=== PATIENT | female | born 1950 | race Caucasian/White ===

== ENCOUNTER 2016-04-23 13:58 | Inpatient (IN) | payer MEDICARE, OTHER ==
[2016-04-21 18:53] LABS: A/G RATIO 1.1 (0.7-1.9); ALBUMIN 3.2 G/DL (3.5-5.0); ALKALINE PHOSPHATASE 68 U/L (45-117); CALCIUM, SERUM 8.6 MG/DL (8.5-10.4); CHLORIDE, SERUM 93 MMOL/L (96-112); CHOL/HDL RATIO(NOT ORDER) 1.9 (0-5); CHOLESTEROL 147 MG/DL (< 200); CREATININE 1.32 MG/DL (0.55-1.02); GFR AFRICAN AMERICAN 49 ML/MIN (>=60); GFR NON AFRICAN AMERICAN 42 ML/MIN (>=60); HDL CHOLESTEROL 77 MG/DL (> 49); NON-HDL CHOLESTEROL 70 MG/DL (< 160); POTASSIUM, SERUM 3.9 MMOL/L (3.5-5.3); SGOT(AST) 15 U/L (5-40); SGPT(ALT) 24 U/L (5-65); SODIUM, SERUM 137 MMOL/L (135-148); TOTAL PROTEIN 6.2 G/DL (6.0-8.5)
[2016-04-21 19:01] LABS: BUN (BLOOD UREA NITROGEN) 29 MG/DL (6-23); CO2 (CARBON DIOXIDE) 37 MMOL/L (24-34); GLUCOSE, SERUM 166 MG/DL (60-99); LDL CHOLESTEROL 18 MG/DL (< 130); TRIGLYCERIDE 262 MG/DL (< 150)
[2016-04-21 19:02] LABS: CPK 35 U/L (0-200); TOTAL BILIRUBIN 0.7 MG/DL (0-1.2)
--- NOTE | ~2016-04-23 | DS ---
Discharge Summary [facility] [address] [place]. [address] NAME: SHANTE CAPELLAN : 50 STATUS : DIS IN PAT#: [id number] AGE: 66 ADM/REG DATE : 04/23/16 MR#: [id number] REPORT SERV DATE: 05/02/16 DICTATED BY: JAZZY ALEXANDER DATE: 05/01/16 REPORT STATUS : Draft TRANSCRIBED BY: MODL DATE: 05/01/16 ADMISSION DATE: 04/23/2016 DISCHARGE DATE: 05/01/2016 HISTORY OF PRESENT ILLNESS: The patient is a 66-year-old female with a history of diabetes type 2, hypertension, peripheral vascular disease, chronic atrial fibrillation, CKD, and COPD, who was admitted to the hospital secondary to septic shock with the hypertension despite fluid resuscitation. For further details, please refer to H and P dictated by Dr. Phoenix on 04/23/2016. HOSPITAL COURSE: The patient was admitted to the intensive care unit for further management. For further details, please refer to interim discharge summary dictated by Dr. Car on 04/27/2016. I assumed care of the patient on 04/28/2016. At the time of my assumption of care, the patient was hemodynamically stable. However, on physical exam, the patient was noted to have a right pleural effusion, which progressively increased in size. However, despite this, the patient remained hemodynamically stable with no breathing difficulty. Repeat chest x-ray on 04/29/2016, noted significantly increased size of a pleural effusion. Interventional Radiology was consulted for diagnostic and therapeutic thoracentesis. The patient had the procedure yesterday. Evaluation of the fluid was consistent with a transudative process. The patient has remained hemodynamically stable and also remained afebrile. Also for her pneumonia, the patient was started on cefepime on the . She has completed a total course of 5 days. Over the course of her hospitalization, her breathing status has significantly improved resulting in the patient stating that she no longer requires any breathing treatment and she has not been requiring supplemental oxygen. For her atrial fibrillation, the patient has remained rate controlled and Eliquis was continued throughout her entire hospitalization. Her diabetes, she was managed in the hospital here with insulin therapy. Her blood sugar has been within acceptable limits. Hypertension, blood pressure also has been controlled. Given completion of workup, given resolution of her symptoms, given her hemodynamic stability, the patient will be discharged home to follow with her primary care physician in seven to ten days. Plan has been discussed with the patient who voices understanding and is agreeable with this plan. DISCHARGE DIAGNOSES: 1. Right pleural effusion. 2. Right lobe pneumonia. 3. Atrial fibrillation, chronic. 4. Diabetes type 2. 5. Hypertension. 6. Obesity. DISCHARGE EXAM: VITAL SIGNS: Blood pressure 100/58 with a pulse of 89, respirations 16, O2 saturation 94% on room air, temperature 98.5 degrees Fahrenheit. GENERAL: The patient is lying in bed, in no acute distress. Appears stated age. HEENT: Normocephalic, atraumatic. Extraocular motors intact. Moist oral mucosa. NECK: Trachea midline and symmetric. No JVD noted. No thyromegaly present. No lymphadenopathy noted. Discharge Summary [address] [address] NAME: SHANTE CAPELLAN : 50 STATUS : DIS IN PAT#: [id number] AGE: 66 ADM/REG DATE : 04/23/16 MR#: [id number] REPORT SERV DATE: 05/02/16 DICTATED BY: JAZZY ALEXANDER DATE: 05/01/16 REPORT STATUS : Draft TRANSCRIBED BY: ISABELA DATE: 05/01/16 CHEST: Nontender to palpation. CARDIOVASCULAR: Irregularly irregular rate and rhythm. ABDOMEN: Soft. Positive bowel sounds. Obese. EXTREMITIES: No cyanosis, no clubbing, no edema. NEURO: Alert and oriented x3. No focal deficits appreciated. DISCHARGE MEDICATIONS: Eliquis 5 mg p.o. twice a day, aspirin 81 mg p.o. daily, vitamin B12 of 1000 mcg IM q.30 days, diltiazem XR 240 mg p.o. daily, folic acid 1 mg p.o. daily, multivitamin tab 1 tab p.o. daily, pantoprazole 40 mg p.o. daily, atorvastatin, albuterol 2 puff inhalation three times a day p.r.n., alprazolam 1 mg p.o. three times a day, furosemide 40 mg p.o. daily, Janumet XR mg tab 1 tab p.o. twice a day, glimepiride 4 mg p.o. twice a day, Mag-Ox 1200 mg p.o. every morning, Mag-Ox 800 mg p.o. at bedtime, Levaquin 750 mg p.o. daily for 5 days, atorvastatin 40 mg p.o. daily. DISPOSITION: The patient will be discharged home. ACTIVITY: As tolerated. DIET: Diabetic diet. Greater than 30 minutes was spent on dictation of note, medication reconciliation, writing of prescription, coordinating discharge, discussion of the patient with nursing staff. BRANDON/ISABELA Jazzy Alexander MD / [id number] CC: MD Martinez Cary M.D.
--- NOTE | ~2016-04-23 | IDS ---
Interim Discharge Summary [facility] [address] [place]. [address] NAME: SHANTE CAPELLAN : 50 STATUS : ADM IN PAT#: [id number] AGE: 66 ADM/REG DATE : 04/23/16 MR#: [id number] REPORT SERV DATE: 04/27/16 DICTATED BY: OLIVER CAR DATE: 04/27/16 REPORT STATUS : Draft TRANSCRIBED BY: MODL DATE: 04/27/16 ADMISSION DATE: 04/23/2016 DISCHARGE DATE: For details of the patient's admission, please see detailed H and P dictated by Dr. Phoenix. Briefly, this is a 66-year-old patient who recently stopped smoking, has a history of COPD, diabetes mellitus, neuropathy, chronic atrial fibrillation, on Cardizem and Eliquis at home, who presents with increasing shortness of breath, hypoxia, and was subsequently admitted for treatment of pneumonia. The patient was noted to have a right perihilar infiltrate. She complained of some pleuritic-type chest pain on the right. She had a CT scan of the abdomen that did not show any abnormality in the abdomen and pelvis, but it was noted that the patient had right lower lobe multifocal and left lower lobe pneumonia. The patient was treated with Rocephin and vancomycin. She tested negative for the flu, the strep pneumo and Legionella urinary antigens. However, one of her blood cultures grew out strep pneumococcus. Sensitivities showed that it was sensitive to Rocephin; however, the patient developed some problems with itching and so the Rocephin was changed to cefepime which she has tolerated and the vancomycin was then discontinued. The patient also was hypotensive and in septic shock and was on Levophed up until yesterday, the . It is now since discontinued. She had a period of atrial fibrillation with RVR and was started on amiodarone drip which she is currently on with plans to change to oral Cardizem in divided doses as opposed to the extended release to see if she can tolerate it and then discontinue the amiodarone. She had a slightly elevated troponin which we feel is more than likely due to stress and an echocardiogram that was done on 04/13/2016 showed an ejection fraction of 51%. She has a known history of type 2 diabetes mellitus and is on a sliding insulin scale. She does complain of mouth soreness and has been started with nystatin swish and swallow and MD Daniel mouthwash with some improvement, but still was complaining of a sore mouth. She had an ALEX secondary to sepsis, but this has resolved. She had a slightly low TSH but has a normal free T4. So, this will be followed. Chest x-ray was noted today on the . There is some atelectasis at the right base with a small right pleural effusion. This needs to be followed and the chest x-ray has been ordered for tomorrow to be sure that she does not develop an effusion or something that eventually will need to be tapped. She is currently on room air and saturating 100%. For DVT prophylaxis, none was provided in the hospital, since the patient was already on Eliquis and this has been continued throughout her hospitalization. She is stable to go to the floor and needs to complete cefepime or antibiotic therapy for at least 10 days given the fact that she had a positive blood culture. Hospitalist service will be notified of the patient's transfer. Interim Discharge Summary [address] [address] NAME: SHANTE CAPELLAN : 50 STATUS : ADM IN [facility]#: [id number] AGE: 66 ADM/REG DATE : 04/23/16 MR#: [id number] REPORT SERV DATE: 04/27/16 DICTATED BY: OLIVER CAR DATE: 04/27/16 REPORT STATUS : Draft TRANSCRIBED BY: ISABELA DATE: 04/27/16 /ISABELA Oliver Car M.D. / [id number] CC: Selma Huff IV, M.D.
--- NOTE | ~2016-04-23 | HP ---
History And Physical [facility] [address] [facility] [place]. [address] NAME: SHANTE GOMEZ : 50 STATUS : ADM IN [facility]#: [id number] AGE: 66 ADM/REG DATE : 04/23/16 MR#: [id number] REPORT SERV DATE: 04/24/16 DICTATED BY: HUYEN PHOENIX IV DATE: 04/23/16 REPORT STATUS : Draft TRANSCRIBED BY: ISABELA DATE: 04/23/16 DATE OF ADMISSION: 04/23/2016 REASON FOR ADMISSION: Septic shock with hypertension despite fluid resuscitation. HISTORY OF PRESENT ILLNESS: History was obtained from the records and from the patient. Ms Gomez is a 66-year-old female with a history of recent tobacco dependency, COPD, diabetes mellitus, neuropathy, peripheral vascular disease, chronic atrial fibrillation, chronic kidney disease, anxiety disorder, valvular heart disease, who presents now with weakness, right flank and upper quadrant pain, and shortness of breath with sepsis. The patient was recently hospitalized for a COPD exacerbation. She was treated with doxycycline and sent home with a steroid taper. She was reportedly only given a Ventolin inhaler to use as needed. She was using this three times a day. She was also initiated on supplemental oxygen 20/09. She has not had pulmonary function studies to her knowledge. She developed two days of mild shortness of breath with generalized malaise and right upper quadrant and flank pain. There is no nausea, vomiting, significant cough, diarrhea, increased urinary urgency, frequency, or dysuria. The patient noted no change in the discomfort with breathing or with bowel movements. She did note some increased shortness of breath and some peripheral edema. She has been compliant with other medications. Because of worsening symptoms, she sought evaluation emergency room where she had an elevated white blood cell count, then became hypotensive and despite fluid resuscitation currently has central line on vasopressor agents. There is no clear exposure to ill individuals. PULMONARY HISTORY: Remarkable for no history of childhood asthma or previous pneumonia. She carries a diagnosis of COPD. She has a 35-pack year smoking history, having quit two weeks ago at the time of her hospitalization. She is reportedly up to date on her immunizations. PAST MEDICAL HISTORY: 1. Recent tobacco dependency. 2. COPD with no pulmonary function studies in the system. 3. Diabetes mellitus with neuropathy. 4. Peripheral vascular disease. 5. Chronic atrial fibrillation. 6. Chronic kidney disease. 7. Anxiety disorder. 8. Valvular heart disease with moderate aortic stenosis and mitral stenosis. PAST SURGICAL HISTORY: 1. She had a right knee arthroscopy, then total knee replacement. 2. Total abdominal hysterectomy, and bilateral salpingo-oophorectomy. 3. Appendectomy. 4. Left leg angioplasty. 5. Cholecystectomy. 6. Ileal bypass later reversed. ALLERGIES: THERE ARE NO KNOWN DRUG ALLERGIES. History And Physical [address] [address] NAME: SHANTE GOMEZ : 50 STATUS : ADM IN PAT#: [id number] AGE: 66 ADM/REG DATE : 04/23/16 MR#: [id number] REPORT SERV DATE: 04/24/16 DICTATED BY: HUYEN PHOENIX IV DATE: 04/23/16 REPORT STATUS : Draft TRANSCRIBED BY: ISABELA DATE: 04/23/16 OUTPATIENT MEDICATIONS: 1. Ventolin as needed. 2. Xanax 1 mg three times a day p.r.n. 3. Eliquis 5 mg twice a day. 4. Aspirin 81 mg daily. 5. B12 daily. 6. Diltiazem 240 mg daily. 7. Folic acid 1 mg daily. 8. Lasix 40 mg daily. 9. Amaryl 4 mg twice a day. 10.[place] p.r.n. 11.Magnesium 1200 mg in the morning and 400 mg at nighttime. 12.Multivitamin daily. 13.Protonix 40 mg daily. 14.Zocor 80 mg daily. 15.Janumet daily. SOCIAL HISTORY: Remarkable for the tobacco use as above. She denies alcohol or illicit drug use. She is , lives with her . She continues to work in third shift. FAMILY HISTORY: Remarkable for mother with coronary artery disease and heart failure; father with gastric carcinoma; siblings with colon cancer and diabetes. REVIEW OF SYSTEMS: Fourteen-systems reviewed and pertinent positives as noted above. PHYSICAL EXAMINATION: GENERAL: This is an obese elderly female, in no current respiratory distress. VITAL SIGNS: Blood pressure is 94/53, heart rate is 96, saturations are 97% on 3 L via nasal cannula, respiratory rate is 20, and temperature was 101 on presentation. HEENT: The patient is normocephalic and atraumatic. Extraocular movements are intact. Pupils are reactive to light. Sclerae and conjunctivae are normal. She has a nasal cannula in place. Upper and lower dentures. There is a Mallampati III to IV airway with narrowing of the posterior pharyngeal space. NECK: Without any palpable lymphadenopathy or thyromegaly. CHEST: The patient has decreased breath sounds symmetrically. A prolonged expiratory phase. There are a few basilar inspiratory crackles and squeaks with some expiratory rhonchi, right more than left. No true wheezes are noted. CARDIOVASCULAR: Jugular venous pulsations are difficult to elicit because of the body habitus. She has a distant irregularly irregular S1 and S2 with a 2/6 systolic murmur at the right upper sternal border. No clear S3 or diastolic murmur is noted. Peripheral pulses are diminished. Carotid upstrokes are 1+ with no bruit. ABDOMEN: Obese and nontender. There is no palpable hepatosplenomegaly or masses. Surgical scars are noted. She has a right upper quadrant discomfort along the ribs, but also radiating around her side to include her paraspinals, but she is unable to elicit whether this reproduces her pain. History And Physical [address] [place]. [address] NAME: SHANTE GOMEZ : 50 STATUS : ADM IN [facility]#: [id number] AGE: 66 ADM/REG DATE : 04/23/16 MR#: [id number] REPORT SERV DATE: 04/24/16 DICTATED BY: HUYEN PHOENIX IV DATE: 04/23/16 REPORT STATUS : Draft TRANSCRIBED BY: ISABELA DATE: 04/23/16 EXTREMITIES: Demonstrate 2+ edema. There is no cyanosis, clubbing, or palpable cords. NEUROLOGIC: Strength is 5/5. Sensation is slightly decreased in a stocking distribution. LABORATORY DATA: Chest x-ray demonstrates a new right perihilar density not noted on her earlier March study. Influenza screen is negative. Urinalysis is unremarkable. Lactate is 1.1. BNP is 340. CBC: Hemoglobin is 9.5, hematocrit 29.6, platelet count is 156,000, and white blood cell count is 23.1. Chemistry: Sodium 133, potassium 4.2, chloride 94, bicarb 29, BUN 31, creatinine 1.46, and glucose of 172. AST and ALT are not elevated. TSH is 0.25. Procalcitonin level is 14.92. EKG demonstrates atrial fibrillation with a rate of 104. No ischemic changes are noted. ASSESSMENT AND PLAN: 1. Respiratory. The patient clinically has COPD, though without apparent exacerbation. Oxygen will be titrated to maintain saturation between 90% and 94% range. The patient has a new right perihilar infiltrative mass likely representing a pneumonia since it was not present previously. Pulmicort and Brovana will be given 1 mg and unit dose twice a day. Spiriva will be given one capsule daily. Albuterol will be given with EzPAP q.4 hours while awake and q.2 hours as needed. I would not provide additional steroids at this time. Chest x-ray will be repeated tomorrow. 2. Infectious disease. We will cover for healthcare associated organisms, though this appears to be most likely a pneumonia. It is odd that she has no significant respiratory symptoms. She will be given cefepime and vancomycin. Cultures have been sent. Urine antigen will be sent for pneumococcus as well as for Legionella. 3. Cardiovascular. Levophed will be given as needed to maintain mean arterial pressure greater than 65. We would avoid over hydration with her valvular heart disease. She will be given LR at 100 mL an hour. Troponin will be obtained now and in the morning. 4. Renal. Magnesium and phosphate levels will be obtained. Creatinine is at baseline, we will follow and replace with electrolyte replacement protocol. 5. Gastrointestinal. Protonix will be given for gastrointestinal prophylaxis with the odd, right upper quadrant and flank pain. The abdominal CT scan will be obtained since there is nothing in the urine to think of a pyelonephritis and she is already status post gallbladder. I see nothing on the chest x-ray with a pleural process as well. 6. Endocrinologic. Cortisol level will be obtained. Insulin sliding scale has been ordered. We will hold oral hypoglycemic medications. 7. Neurologic. We will give thiamine orally, pain management. The patient was offered Habitrol patch; however, she is not interested at this time. History And Physical [address] [place]. [address] NAME: SHANTE GOMEZ : 50 STATUS : ADM IN [facility]#: [id number] AGE: 66 ADM/REG DATE : 04/23/16 MR#: [id number] REPORT SERV DATE: 04/24/16 DICTATED BY: HUYEN PHOENIX IV DATE: 04/23/16 REPORT STATUS : Draft TRANSCRIBED BY: ISABELA DATE: 04/23/16 8. Hematologic. We will continue the Eliquis. The patient will be admitted to the ICU under the petroleum laboratory technician service. TIME SEEN: 1645 hours to 1750 hours for a 55 minutes critical care time. TENZIN/ISABELA Huyen Phoenix IV, M.D. / [id number] CC: Selma Huff IV, M.D.
[~2016-04-23 13:58] MED LIST: ACTIVELLA PO; ACTOS30 PO; ADALAT CC30 MG PO; ADOXA100 MG PO; AMARYL4 PO; ASAB PO; B121000P IM; B150 PO; CARTIA XT240 MG/24 PO; CEFT5 PO; CENTRUM PO; COMBIVENT INH; COMBIVENT RESPIM4 GM INH; COMBIVENT RESPIM4 GM PO; DILACOR X2 PO; DILT-XR240 MG PO; DULERA 100 MCG/13 GM INH; ELIQUIS 5 MG TAB5 MG PO; FOLAMIN PO; FOLIC PO; GLUCOPHAGE1000 MG PO; GLUCPH PO; HALF81 PO; HYDROCHLOROT25 MG PO; JANTOVEN1 MG PO; JANUMET XR 50-1 EAC1 PO; JANUMET1 TA1 PO; L20 PO; L40 PO; LANTUS SC; LORTAB10 PO; MAGNESIUM CITRATE PO; MAGOX4 PO; MOBIC7.5 PO; MONOPRIL40 MG PO; MULTIVITAMI1 PO; NORCO1 TAB PO; P20 PO; PROTONIX PO; VENTOLIN HFA INH; X5 PO; XANAX1 MG PO; ZITH250 PO; ZITHROMAX500 MG PO; ZOCOR40 PO; ZOCOR80 MG PO; [UNRECOGNIZED DRUG - OTHER]; [UNRECOGNIZED DRUG - OTHER] OP; [UNRECOGNIZED DRUG - OTHER] OPH; [UNRECOGNIZED DRUG - REMARK]
[2016-04-23 14:03] LABS: BASOPHILS 0 %; BASOPHILS ABSOLUTE 0.01 10/3/uL (0.0-0.16); EOSINOPHILS 0 %; HEMOGLOBIN 9.5 g/dL (12.0-16.0); IMMATURE GRANULOCYTES 1.2 %; IMMATURE GRANULOCYTES ABSOLUTE 0.28 10/3/uL (0.0-0.11); LYMPHOCYTES 1.5 %; LYMPHOCYTES ABSOLUTE 0.35 10/3/uL (0.67-4.30); MEAN CORPUS HGB CONC 32.1 g/dL (32.0-36.0); MEAN CORPUSCULAR HEMOGLOB 27.8 pg (26.0-34.0); MEAN PLATELET VOLUME 10.1 fL (9.2-13.0); MONOCYTES 1.8 %; MONOCYTES ABSOLUTE 0.41 10/3/uL (0.21-1.20); NEUTROPHILS 95.5 %; PLATELET COUNT 156 10/3/uL (150-400); RBC DISTRIBUTION WIDTH 16.3 % (12.0-16.0); RED CELL COUNT 3.42 10/6/uL (4.0-5.6)
[2016-04-23 14:04] LABS: ER CBC TAT 0 Hrs 07 Mins; HEMATOCRIT 29.6 % (36.0-48.0); MEAN CORPUSCULAR VOLUME 86.5 fL (80-100); WHITE BLOOD CELLS 23.1 10/3/uL (4.5-10.5)
[2016-04-23 14:05] LABS: MANUAL DIFF NO %
[2016-04-23 14:15] LABS: ASCORBIC ACID (UR NOT ORDER) NEG (NEG); BILIRUBIN, URINE NEGATIVE (NEG); ER URINALYSIS TAT 0 Hrs 18 Mins; KETONE, URINE NEGATIVE (NEG); LEUKOCYTE ESTERASE(NOT OR SMALL (NEG); NITRITE (URINE) NEG (NEG); WBC (NOT ORDERED) (RFLEX) 1 (0-5)
[2016-04-23 14:17] LABS: ALKALINE PHOSPHATASE 63 U/L (45-117); BUN (BLOOD UREA NITROGEN) 31 MG/DL (6-23); CALCIUM, SERUM 7.7 MG/DL (8.5-10.4); CHLORIDE, SERUM 94 MMOL/L (96-112); CREATININE 1.46 MG/DL (0.55-1.02); GFR AFRICAN AMERICAN 43 ML/MIN (>=60); GFR NON AFRICAN AMERICAN 37 ML/MIN (>=60); GLUCOSE, SERUM 172 MG/DL (60-99); SGPT(ALT) 15 U/L (5-65); SODIUM, SERUM 133 MMOL/L (135-148); TOTAL BILIRUBIN 0.8 MG/DL (0-1.2); TOTAL PROTEIN 5.9 G/DL (6.0-8.5)
[2016-04-23 14:18] LABS: INFLUENZA A SCREEN NEGATIVE (NEGATIVE); INFLUENZA B SCREEN NEGATIVE (NEGATIVE)
[2016-04-23 14:18] LABS: LACTATE 1.1 MMOL/L (0.3-2.4)
[2016-04-23 14:19] LABS: A/G RATIO 0.6 (0.7-1.9); ALBUMIN 2.1 G/DL (3.5-5.0); CO2 (CARBON DIOXIDE) 29 MMOL/L (24-34); GLOBULIN 3.8 G/DL (2.5-4.1); POTASSIUM, SERUM 4.2 MMOL/L (3.5-5.3); SGOT(AST) 32 U/L (5-40)
[2016-04-23 14:59] LABS: BAND NEUTROPHILS 11 %; ER DIFF TAT 1 Hrs 02 Mins; LYMPHOCYTES 3 %; LYMPHOCYTES ABSOLUTE (CALC) 0.69 10/3/uL (0.67-4.30); MONOCYTES 3 %; MONOCYTES ABSOLUTE (CALC) 0.69 10/3/uL (0.21-1.20); NEUTROPHILS ABSOLUTE (CALC) 21.71 10/3/uL (2.02-8.40); PLATELET ESTIMATE ADQ (ADEQUATE); RBC MORPHOLOGY NORM (NORMAL); SEGMENTED NEUTROPHIL (0) 83 %; TOTAL NUCLEATED CELLS 100
[2016-04-23 16:04] LABS: PROCALCITONIN 14.92 ng/mL (<0.5)
[2016-04-23 16:55] LABS: ULTRASENSITIVE TSH 0.215 MCIU/ML (0.358-3.740)
[2016-04-23 23:24] LABS: PHOSPHORUS, SERUM 3.7 MG/DL (2.5-4.5)
[2016-04-23 23:25] LABS: TROPONIN I 0.25 NG/ML (<0.05)
[2016-04-24 04:10] LABS: HEMATOCRIT 31.3 % (36.0-48.0); HEMOGLOBIN 10.1 g/dL (12.0-16.0); MEAN CORPUS HGB CONC 32.3 g/dL (32.0-36.0); MEAN CORPUSCULAR HEMOGLOB 28.5 pg (26.0-34.0); MEAN CORPUSCULAR VOLUME 88.2 fL (80-100); MEAN PLATELET VOLUME 10.7 fL (9.2-13.0); PLATELET COUNT 204 10/3/uL (150-400); RBC DISTRIBUTION WIDTH 16.3 % (12.0-16.0); RED CELL COUNT 3.55 10/6/uL (4.0-5.6); WHITE BLOOD CELLS 31.3 10/3/uL (4.5-10.5)
[2016-04-24 04:12] LABS: MANUAL DIFF YES %
[2016-04-24 05:21] LABS: BAND NEUTROPHILS 16 %; LYMPHOCYTES 1 %; LYMPHOCYTES ABSOLUTE (CALC) 0.31 10/3/uL (0.67-4.30); MONOCYTES 2 %; MONOCYTES ABSOLUTE (CALC) 0.63 10/3/uL (0.21-1.20); NEUTROPHILS ABSOLUTE (CALC) 30.36 10/3/uL (2.02-8.40); SEGMENTED NEUTROPHIL (0) 81 %; TOTAL NUCLEATED CELLS 100
[2016-04-24 05:22] LABS: PLATELET ESTIMATE ADQ (ADEQUATE); TOXIC GRANULATION 1+
[2016-04-24 05:23] LABS: POLYCHROMASIA 1+ (2-5/OIF) (0-1/OIF)
[2016-04-24 06:20] LABS: ALBUMIN 2.3 G/DL (3.5-5.0); BUN (BLOOD UREA NITROGEN) 31 MG/DL (6-23); CALCIUM, SERUM 8.1 MG/DL (8.5-10.4); CHLORIDE, SERUM 95 MMOL/L (96-112); CREATININE 1.27 MG/DL (0.55-1.02); GFR AFRICAN AMERICAN 51 ML/MIN (>=60); GFR NON AFRICAN AMERICAN 44 ML/MIN (>=60); PHOSPHORUS, SERUM 3.4 MG/DL (2.5-4.5); POTASSIUM, SERUM 3.7 MMOL/L (3.5-5.3); SODIUM, SERUM 132 MMOL/L (135-148)
[2016-04-24 06:21] LABS: CO2 (CARBON DIOXIDE) 23 MMOL/L (24-34); GLUCOSE, SERUM 344 MG/DL (60-99)
[2016-04-24 06:22] LABS: TROPONIN I 0.18 NG/ML (<0.05)
[2016-04-25 05:15] LABS: BASOPHILS 0.1 %; BASOPHILS ABSOLUTE 0.01 10/3/uL (0.0-0.16); EOSINOPHILS 0.8 %; HEMATOCRIT 30.3 % (36.0-48.0); HEMOGLOBIN 9.4 g/dL (12.0-16.0); IMMATURE GRANULOCYTES 0.3 %; IMMATURE GRANULOCYTES ABSOLUTE 0.03 10/3/uL (0.0-0.11); LYMPHOCYTES 6.1 %; LYMPHOCYTES ABSOLUTE 0.73 10/3/uL (0.67-4.30); MEAN CORPUSCULAR HEMOGLOB 27.4 pg (26.0-34.0); MEAN CORPUSCULAR VOLUME 88.3 fL (80-100); MEAN PLATELET VOLUME 10.4 fL (9.2-13.0); MONOCYTES 3.2 %; MONOCYTES ABSOLUTE 0.38 10/3/uL (0.21-1.20); NEUTROPHILS 89.5 %; NEUTROPHILS ABSOLUTE 10.74 10/3/uL (2.02-8.40); PLATELET COUNT 169 10/3/uL (150-400); RBC DISTRIBUTION WIDTH 16.2 % (12.0-16.0); RED CELL COUNT 3.43 10/6/uL (4.0-5.6)
[2016-04-25 05:26] LABS: MANUAL DIFF NO %
[2016-04-25 05:57] LABS: CALCIUM, SERUM 8.6 MG/DL (8.5-10.4); CHLORIDE, SERUM 98 MMOL/L (96-112); CO2 (CARBON DIOXIDE) 27 MMOL/L (24-34); GFR AFRICAN AMERICAN 55 ML/MIN (>=60); GFR NON AFRICAN AMERICAN 47 ML/MIN (>=60); POTASSIUM, SERUM 3.7 MMOL/L (3.5-5.3); SODIUM, SERUM 136 MMOL/L (135-148)
[2016-04-25 05:58] LABS: BUN (BLOOD UREA NITROGEN) 25 MG/DL (6-23); GLUCOSE, SERUM 142 MG/DL (60-99); PHOSPHORUS, SERUM 2.2 MG/DL (2.5-4.5)
[2016-04-26 04:54] LABS: BASOPHILS 0.3 %; BASOPHILS ABSOLUTE 0.02 10/3/uL (0.0-0.16); EOSINOPHILS 1.2 %; EOSINOPHILS ABSOLUTE 0.07 10/3/uL (0.0-0.53); HEMATOCRIT 30.2 % (36.0-48.0); HEMOGLOBIN 9.4 g/dL (12.0-16.0); IMMATURE GRANULOCYTES 0.5 %; IMMATURE GRANULOCYTES ABSOLUTE 0.03 10/3/uL (0.0-0.11); LYMPHOCYTES 16.1 %; LYMPHOCYTES ABSOLUTE 0.92 10/3/uL (0.67-4.30); MEAN CORPUS HGB CONC 31.1 g/dL (32.0-36.0); MEAN CORPUSCULAR HEMOGLOB 27.5 pg (26.0-34.0); MEAN CORPUSCULAR VOLUME 88.3 fL (80-100); MEAN PLATELET VOLUME 10.5 fL (9.2-13.0); MONOCYTES 6.8 %; MONOCYTES ABSOLUTE 0.39 10/3/uL (0.21-1.20); NEUTROPHILS 75.1 %; PLATELET COUNT 161 10/3/uL (150-400); RBC DISTRIBUTION WIDTH 16.4 % (12.0-16.0); RED CELL COUNT 3.42 10/6/uL (4.0-5.6)
[2016-04-26 05:02] LABS: MANUAL DIFF NO %; WHITE BLOOD CELLS 5.7 10/3/uL (4.5-10.5)
[2016-04-26 05:04] LABS: CALCIUM, SERUM 8.9 MG/DL (8.5-10.4); CHLORIDE, SERUM 100 MMOL/L (96-112); CO2 (CARBON DIOXIDE) 26 MMOL/L (24-34); CREATININE 0.96 MG/DL (0.55-1.02); GFR AFRICAN AMERICAN 71 ML/MIN (>=60); GFR NON AFRICAN AMERICAN 62 ML/MIN (>=60); PHOSPHORUS, SERUM 2.1 MG/DL (2.5-4.5); POTASSIUM, SERUM 3.5 MMOL/L (3.5-5.3); SODIUM, SERUM 136 MMOL/L (135-148)
[2016-04-26 05:10] LABS: BUN (BLOOD UREA NITROGEN) 13 MG/DL (6-23); GLUCOSE, SERUM 183 MG/DL (60-99)
[2016-04-26 06:37] LABS: PROCALCITONIN 3.83 ng/mL (<0.5)
[2016-04-27 05:02] LABS: BASOPHILS 0.3 %; BASOPHILS ABSOLUTE 0.02 10/3/uL (0.0-0.16); EOSINOPHILS 1.2 %; EOSINOPHILS ABSOLUTE 0.07 10/3/uL (0.0-0.53); HEMATOCRIT 31.1 % (36.0-48.0); HEMOGLOBIN 9.7 g/dL (12.0-16.0); IMMATURE GRANULOCYTES 0.7 %; IMMATURE GRANULOCYTES ABSOLUTE 0.04 10/3/uL (0.0-0.11); LYMPHOCYTES ABSOLUTE 0.82 10/3/uL (0.67-4.30); MANUAL DIFF NO %; MEAN CORPUS HGB CONC 31.2 g/dL (32.0-36.0); MEAN CORPUSCULAR HEMOGLOB 27.6 pg (26.0-34.0); MEAN CORPUSCULAR VOLUME 88.4 fL (80-100); MEAN PLATELET VOLUME 10.7 fL (9.2-13.0); MONOCYTES 8.2 %; MONOCYTES ABSOLUTE 0.48 10/3/uL (0.21-1.20); NEUTROPHILS 75.6 %; NEUTROPHILS ABSOLUTE 4.42 10/3/uL (2.02-8.40); PLATELET COUNT 146 10/3/uL (150-400); RBC DISTRIBUTION WIDTH 16.6 % (12.0-16.0); RED CELL COUNT 3.52 10/6/uL (4.0-5.6); WHITE BLOOD CELLS 5.9 10/3/uL (4.5-10.5)
[2016-04-27 05:31] LABS: BUN (BLOOD UREA NITROGEN) 11 MG/DL (6-23); CALCIUM, SERUM 8.6 MG/DL (8.5-10.4); CHLORIDE, SERUM 99 MMOL/L (96-112); CO2 (CARBON DIOXIDE) 28 MMOL/L (24-34); CREATININE 0.91 MG/DL (0.55-1.02); GFR AFRICAN AMERICAN 76 ML/MIN (>=60); GFR NON AFRICAN AMERICAN 66 ML/MIN (>=60); GLUCOSE, SERUM 167 MG/DL (60-99); PHOSPHORUS, SERUM 3.3 MG/DL (2.5-4.5); POTASSIUM, SERUM 3.7 MMOL/L (3.5-5.3); SODIUM, SERUM 137 MMOL/L (135-148)
[2016-04-28 06:10] LABS: BASOPHILS 0.2 %; BASOPHILS ABSOLUTE 0.01 10/3/uL (0.0-0.16); EOSINOPHILS 1.7 %; HEMATOCRIT 28.5 % (36.0-48.0); HEMOGLOBIN 8.9 g/dL (12.0-16.0); IMMATURE GRANULOCYTES 0.8 %; IMMATURE GRANULOCYTES ABSOLUTE 0.05 10/3/uL (0.0-0.11); LYMPHOCYTES 16.7 %; LYMPHOCYTES ABSOLUTE 1.01 10/3/uL (0.67-4.30); MEAN CORPUS HGB CONC 31.2 g/dL (32.0-36.0); MEAN CORPUSCULAR HEMOGLOB 27.6 pg (26.0-34.0); MEAN CORPUSCULAR VOLUME 88.2 fL (80-100); MEAN PLATELET VOLUME 10.7 fL (9.2-13.0); MONOCYTES ABSOLUTE 0.42 10/3/uL (0.21-1.20); NEUTROPHILS 73.6 %; NEUTROPHILS ABSOLUTE 4.44 10/3/uL (2.02-8.40); PLATELET COUNT 151 10/3/uL (150-400); RBC DISTRIBUTION WIDTH 16.5 % (12.0-16.0); RED CELL COUNT 3.23 10/6/uL (4.0-5.6)
[2016-04-28 06:11] LABS: BUN (BLOOD UREA NITROGEN) 10 MG/DL (6-23); CALCIUM, SERUM 8.4 MG/DL (8.5-10.4); CHLORIDE, SERUM 102 MMOL/L (96-112); CO2 (CARBON DIOXIDE) 28 MMOL/L (24-34); CREATININE 0.82 MG/DL (0.55-1.02); GFR AFRICAN AMERICAN 86 ML/MIN (>=60); GFR NON AFRICAN AMERICAN 75 ML/MIN (>=60); GLUCOSE, SERUM 157 MG/DL (60-99); POTASSIUM, SERUM 3.8 MMOL/L (3.5-5.3); SODIUM, SERUM 139 MMOL/L (135-148)
[2016-04-28 06:12] LABS: MANUAL DIFF NO %
[2016-04-28 07:45] LABS: PROCALCITONIN 1.04 ng/mL (<0.5)
[2016-04-29 06:35] LABS: A/G RATIO 0.5 (0.7-1.9); ALBUMIN 2.1 G/DL (3.5-5.0); BUN (BLOOD UREA NITROGEN) 11 MG/DL (6-23); CALCIUM, SERUM 8.6 MG/DL (8.5-10.4); CHLORIDE, SERUM 103 MMOL/L (96-112); CO2 (CARBON DIOXIDE) 27 MMOL/L (24-34); GFR AFRICAN AMERICAN 77 ML/MIN (>=60); GFR NON AFRICAN AMERICAN 67 ML/MIN (>=60); GLOBULIN 4.2 G/DL (2.5-4.1); POTASSIUM, SERUM 3.9 MMOL/L (3.5-5.3); SGOT(AST) 13 U/L (5-40); SGPT(ALT) 20 U/L (5-65); SODIUM, SERUM 138 MMOL/L (135-148); TOTAL BILIRUBIN 0.5 MG/DL (0-1.2); TOTAL PROTEIN 6.3 G/DL (6.0-8.5)
[2016-04-29 06:36] LABS: ALKALINE PHOSPHATASE 76 U/L (45-117); GLUCOSE, SERUM 107 MG/DL (60-99)
[2016-04-29 06:55] LABS: BASOPHILS 0.4 %; BASOPHILS ABSOLUTE 0.02 10/3/uL (0.0-0.16); EOSINOPHILS 1.8 %; HEMATOCRIT 30.2 % (36.0-48.0); HEMOGLOBIN 9.4 g/dL (12.0-16.0); IMMATURE GRANULOCYTES 0.9 %; IMMATURE GRANULOCYTES ABSOLUTE 0.05 10/3/uL (0.0-0.11); LYMPHOCYTES 17.9 %; LYMPHOCYTES ABSOLUTE 1.01 10/3/uL (0.67-4.30); MEAN CORPUS HGB CONC 31.1 g/dL (32.0-36.0); MEAN CORPUSCULAR HEMOGLOB 26.7 pg (26.0-34.0); MEAN CORPUSCULAR VOLUME 85.8 fL (80-100); MEAN PLATELET VOLUME 10.6 fL (9.2-13.0); MONOCYTES 7.6 %; MONOCYTES ABSOLUTE 0.43 10/3/uL (0.21-1.20); NEUTROPHILS 71.4 %; NEUTROPHILS ABSOLUTE 4.02 10/3/uL (2.02-8.40); PLATELET COUNT 172 10/3/uL (150-400); RBC DISTRIBUTION WIDTH 16.7 % (12.0-16.0); RED CELL COUNT 3.52 10/6/uL (4.0-5.6); WHITE BLOOD CELLS 5.6 10/3/uL (4.5-10.5)
[2016-04-29 06:56] LABS: MANUAL DIFF NO %
[2016-04-30 06:08] LABS: BASOPHILS 0.3 %; BASOPHILS ABSOLUTE 0.02 10/3/uL (0.0-0.16); EOSINOPHILS 1.3 %; EOSINOPHILS ABSOLUTE 0.08 10/3/uL (0.0-0.53); HEMATOCRIT 28.6 % (36.0-48.0); HEMOGLOBIN 8.8 g/dL (12.0-16.0); IMMATURE GRANULOCYTES 0.7 %; IMMATURE GRANULOCYTES ABSOLUTE 0.04 10/3/uL (0.0-0.11); LYMPHOCYTES 15.1 %; LYMPHOCYTES ABSOLUTE 0.91 10/3/uL (0.67-4.30); MEAN CORPUS HGB CONC 30.8 g/dL (32.0-36.0); MEAN CORPUSCULAR HEMOGLOB 27.4 pg (26.0-34.0); MEAN PLATELET VOLUME 10.6 fL (9.2-13.0); MONOCYTES ABSOLUTE 0.36 10/3/uL (0.21-1.20); NEUTROPHILS 76.6 %; NEUTROPHILS ABSOLUTE 4.63 10/3/uL (2.02-8.40); PLATELET COUNT 182 10/3/uL (150-400); RBC DISTRIBUTION WIDTH 16.8 % (12.0-16.0); RED CELL COUNT 3.21 10/6/uL (4.0-5.6)
[2016-04-30 06:10] LABS: MANUAL DIFF NO %; MEAN CORPUSCULAR VOLUME 89.1 fL (80-100)
[2016-04-30 06:16] LABS: A/G RATIO 0.4 (0.7-1.9); ALBUMIN 1.8 G/DL (3.5-5.0); ALKALINE PHOSPHATASE 71 U/L (45-117); BUN (BLOOD UREA NITROGEN) 10 MG/DL (6-23); CALCIUM, SERUM 8.1 MG/DL (8.5-10.4); CHLORIDE, SERUM 100 MMOL/L (96-112); CO2 (CARBON DIOXIDE) 29 MMOL/L (24-34); CREATININE 0.89 MG/DL (0.55-1.02); GFR AFRICAN AMERICAN 78 ML/MIN (>=60); GFR NON AFRICAN AMERICAN 68 ML/MIN (>=60); GLOBULIN 4.2 G/DL (2.5-4.1); POTASSIUM, SERUM 3.7 MMOL/L (3.5-5.3); SGOT(AST) 13 U/L (5-40); SGPT(ALT) 18 U/L (5-65); SODIUM, SERUM 138 MMOL/L (135-148); TOTAL BILIRUBIN 0.5 MG/DL (0-1.2)
[2016-04-30 06:18] LABS: GLUCOSE, SERUM 158 MG/DL (60-99)
[2016-04-30 12:42] LABS: PARTIAL THROMBO TIME 42.2 SEC (22.5-37.2)
[2016-04-30 12:46] LABS: PROTIME (NOT ORD) 22.9 SEC (12.0-14.5)
[2016-04-30 15:35] LABS: GLUCOSE BODY FL (NOT ORD) 107 MG/DL; LDH BODY FLUID (NOT ORD) 422 U/L; PROTEIN BODY FLUID 2.5 G/DL
[2016-04-30 15:52] LABS: BD FL LYMPH (NOT ORD) 8 %; BD FL SOURCE (NOT ORD) RIGHT PLEURAL; BF BASO (NOT OF) 0 %; BF LARGE MONONUCLEAR 9 %; BODY FLUID EOS (NOT ORD) 0 %; BODY FLUID SEG (NOT ORD) 83 %
[2016-04-30 17:52] LABS: BF TOTAL CELL CT (NOT ORD 1787 /MM3; BODY FLUID RBC (NOT ORD) 11774 /MM3
[2016-05-01 06:10] LABS: BASOPHILS 0.3 %; BASOPHILS ABSOLUTE 0.02 10/3/uL (0.0-0.16); EOSINOPHILS 1.3 %; EOSINOPHILS ABSOLUTE 0.09 10/3/uL (0.0-0.53); HEMATOCRIT 30.9 % (36.0-48.0); HEMOGLOBIN 9.5 g/dL (12.0-16.0); IMMATURE GRANULOCYTES 0.1 %; IMMATURE GRANULOCYTES ABSOLUTE 0.01 10/3/uL (0.0-0.11); LYMPHOCYTES 16.6 %; LYMPHOCYTES ABSOLUTE 1.11 10/3/uL (0.67-4.30); MEAN CORPUS HGB CONC 30.7 g/dL (32.0-36.0); MEAN CORPUSCULAR HEMOGLOB 27.3 pg (26.0-34.0); MEAN CORPUSCULAR VOLUME 88.8 fL (80-100); MEAN PLATELET VOLUME 10.9 fL (9.2-13.0); MONOCYTES 7.9 %; MONOCYTES ABSOLUTE 0.53 10/3/uL (0.21-1.20); NEUTROPHILS 73.8 %; NEUTROPHILS ABSOLUTE 4.91 10/3/uL (2.02-8.40); PLATELET COUNT 209 10/3/uL (150-400); RBC DISTRIBUTION WIDTH 16.8 % (12.0-16.0); RED CELL COUNT 3.48 10/6/uL (4.0-5.6); WHITE BLOOD CELLS 6.7 10/3/uL (4.5-10.5)
[2016-05-01 06:12] LABS: MANUAL DIFF NO %
[2016-05-01 06:20] LABS: A/G RATIO 0.5 (0.7-1.9); ALKALINE PHOSPHATASE 80 U/L (45-117); BUN (BLOOD UREA NITROGEN) 12 MG/DL (6-23); CALCIUM, SERUM 8.4 MG/DL (8.5-10.4); CHLORIDE, SERUM 101 MMOL/L (96-112); CO2 (CARBON DIOXIDE) 30 MMOL/L (24-34); CREATININE 0.98 MG/DL (0.55-1.02); GFR AFRICAN AMERICAN 70 ML/MIN (>=60); GFR NON AFRICAN AMERICAN 60 ML/MIN (>=60); GLOBULIN 4.4 G/DL (2.5-4.1); GLUCOSE, SERUM 128 MG/DL (60-99); POTASSIUM, SERUM 3.5 MMOL/L (3.5-5.3); SGOT(AST) 17 U/L (5-40); SGPT(ALT) 19 U/L (5-65); SODIUM, SERUM 138 MMOL/L (135-148); TOTAL BILIRUBIN 0.4 MG/DL (0-1.2); TOTAL PROTEIN 6.4 G/DL (6.0-8.5)
[2016-05-01] MEDS ORDERED: DSS PO (12:02)
[2016-05-01] MEDS ORDERED: LIPITOR40 PO (12:04)
== END 2016-05-01 13:36 | disposition home or self-care (01) | DRG 853 ==
LOC: ER 13:58 → MIC 17:33 → 2SO 04-27 20:05
PROVIDERS: Family Medicine; Hospitalist; Internal Medicine Critical Care Medicine; Internal Medicine Pulmonary Disease; Physician Assistant
PROC: 0W9940Z Drainage of Right Pleural Cavity with Drainage Device, Percutaneous Endoscopic Approach (ICD-10-PCS; principal; 2016-04-30)
DX: A40.9 Streptococcal sepsis, unspecified (principal); R65.21 Severe sepsis with septic shock; J90 Pleural effusion, not elsewhere classified; N17.9 Acute kidney failure, unspecified; J18.1 Lobar pneumonia, unspecified organism; E11.42 Type 2 diabetes mellitus with diabetic polyneuropathy; Z99.81 Dependence on supplemental oxygen; J98.11 Atelectasis; J44.0 Chronic obstructive pulmonary disease with (acute) lower respiratory infection; I48.2 Chronic atrial fibrillation; N18.9 Chronic kidney disease, unspecified; F17.211 Nicotine dependence, cigarettes, in remission; F41.9 Anxiety disorder, unspecified; I08.0 Rheumatic disorders of both mitral and aortic valves; T36.1X5A Adverse effect of cephalosporins and other beta-lactam antibiotics, initial encounter; Y92.230 Patient room in hospital as the place of occurrence of the external cause; E66.9 Obesity, unspecified; Z79.82 Long term (current) use of aspirin; Z79.01 Long term (current) use of anticoagulants; Z79.4 Long term (current) use of insulin; Z98.890 Other specified postprocedural states; Z82.49 Family history of ischemic heart disease and other diseases of the circulatory system; Z80.0 Family history of malignant neoplasm of digestive organs; Z83.3 Family history of diabetes mellitus
CPT/HCPCS: 32555; 36415; 71010; 71020; 74176; 80048; 80053; 80061; 80069; 81001; 82150; 82533; 82550; 82945; 82962; 83036; 83605; 83615; 83690; 83735; 83880; 83986; 84100; 84145; 84157; 84443; 84484; 85025; 85610; 85730; 87040; 87070; 87077; 87086; 87150; 87186; 87205; 87449; 87641; 87804; 89051; 94640; 96365; 96375; 99291; 99292; A9270-GY; J0282; J0692; J1170; J1200; J1720; J3370

== ENCOUNTER 2016-05-17 15:40 | Inpatient (IN) | payer MEDICARE, OTHER ==
--- NOTE | ~2016-05-17 | HP ---
History And Physical [address] [place]. [address] NAME: SHANTE CAPELLAN : 50 STATUS : ADM IN [facility]#: [id number] AGE: 66 ADM/REG DATE : 05/17/16 MR#: [id number] REPORT SERV DATE: 05/17/16 DICTATED BY: PAIGE GILLILAND DATE: 05/17/16 REPORT STATUS : Draft TRANSCRIBED BY: MODL DATE: 05/17/16 DATE OF ADMISSION: 05/17/2016 CHIEF COMPLAINT: Generalized weakness. HISTORY OF PRESENT ILLNESS: The patient is a 66-year-old female with past medical history of AFib, COPD, hypertension, recent HCAP pneumonia, diabetes type 2, CKD, chronic pain, recent smoker until this year, who presents after having recently discharged from hospital for a pneumonia with pleural effusion requiring thoracentesis, who was slowly trying to improve but has had progressive weakness. Symptoms have been constant, moderate in severity. Does have mild discomfort with deep breathing that is nonradiating. No nausea or vomiting, but does have decreased p.o. intake. No fevers or diarrhea, but has had urinary yeast type infection feeling. The patient also reports that symptoms are worsened with exertion, resolved only by rest. Symptoms though currently present. The patient has not resolved from symptoms of pneumonia fully since discharge. She does report that she has not had activity and also noted continuing physical decline. REVIEW OF SYSTEMS: GENERAL: Decreased p.o. intake, weakness, but no fevers. EYES: No visual changes or pain. ENT: No sore throat or congestion. NEURO: No numbness or confusion. SKIN: Does have lower extremity swelling, but no rashes. RESPIRATORY: Does have shortness of breath or dyspnea on exertion. Occasional cough. CV: No chest pain. Does have mild chest pain with deep exertion, but no palpitations. GI: No nausea, vomiting, diarrhea, abdominal pain. : No dysuria or hematuria. MUSCULOSKELETAL: Does have chronic swelling and chronic myalgias. ENDO: Increased fatigue. No polyuria. HEME: No bleeding or bruising. IMMUNOLOGIC: No rhinorrhea. PSYCH: No confusion but mild anxiety about having possible repeat thoracentesis. PAST MEDICAL HISTORY: Tobacco use, COPD, diabetes, peripheral vascular disease, chronic AFib, CKD, anxiety, valvular heart disease with moderate and mitral stenosis, recent pneumonia with pleural effusion. SURGICAL HISTORY: Right knee arthroscopic and total knee replacement, total abdominal hysterectomy and bilateral salpingo-oophorectomy, appendectomy, left leg angioplasty, cholecystectomy, ileal bypass and later reversed. ALLERGIES: ROCEPHIN. SOCIAL HISTORY: Quit smoking earlier this year. Accompanied with spouse. No alcohol or illicits. History And Physical [address] [address] NAME: SHANTE CAPELLAN : 50 STATUS : ADM IN PAT#: [id number] AGE: 66 ADM/REG DATE : 05/17/16 MR#: [id number] REPORT SERV DATE: 05/17/16 DICTATED BY: PAIGE GILLILAND DATE: 05/17/16 REPORT STATUS : Draft TRANSCRIBED BY: ISABELA DATE: 05/17/16 FAMILY HISTORY: Coronary artery disease, gastric carcinoma, and additional siblings with colon cancer and diabetes. MEDICATIONS: Ventolin, Xanax, Eliquis, aspirin, atorvastatin, vitamin B, diltiazem, folic acid, Lasix, Amaryl, Sparks, Mag-Ox, Mobic, multivitamin, Protonix, Actos, Janumet, Ocupress. PHYSICAL EXAMINATION: VITAL SIGNS: The patient's blood pressure 168/76, temperature 97.9, pulse 93 to 110, respirations 18, O2 saturations 97% on 2 L. GENERAL: Elderly appears older than stated age, slightly frail but no acute distress at rest. HEENT: Eyes, EOMI. No scleral icterus. ENT, nares patent. Tongue midline. Does have moist mucous membranes. RESPIRATORY: Decreased lower lung camargo. Upper rhonchi diffuse lung sounds with mild end- expiratory wheeze. CHEST: Mildly increased AP diameter. CV: Irregularly irregular. Tachycardic. Trace pedal edema. GI: Soft, nontender, nondistended. Bowel sounds positive. : Deferred. MUSCULOSKELETAL: Moves all extremities x4. Bilateral edema. SKIN: Warm, dry. HEME: No bleeding or bruising except that prior IV sites on hands. NEURO: Alert and oriented. Moves all extremities x4. No asterixis. PSYCH: Appropriate mood and affect. Mildly anxious. LABORATORY DATA: CMP: Procalcitonin negative. BUN and creatinine 14 and 0.87. Troponin negative. LFTs within normal limits. CPK within normal limits. Lactate 1.0. Chest: Persistent effusion with right lower lobe pneumonia, some minimal left costophrenic angle atelectasis. Urinalysis: Large leukocyte esterase with 18 wbc's, occasional bacteria. Ammonia 16. CBC: WBC count 14.7 increased from 6.7 on recent discharge, H and H 10.1 and 33, platelets 485. ASSESSMENT AND PLAN: 1. Healthcare-associated pneumonia. 2. Sepsis. 3. Recurrent pleural effusion. 4. Diabetes type 2. 5. Hypertension. 6. Atrial fibrillation. 7. Obesity. 8. Chronic obstructive pulmonary disease. 9. Urinary tract infection with yeast infection. PLAN: 1. For HCAP, cefepime and vancomycin. Right lower lobe still continued with pleural effusion. Did have extended stay include ICU stay at most recent hospitalization. We will ask for a pulmonary evaluation as the patient has had complex pneumonia history History And Physical [address] [address] NAME: SHANTE CAPELLAN AMAURY : 50 STATUS : ADM IN [facility]#: [id number] AGE: 66 ADM/REG DATE : 05/17/16 MR#: [id number] REPORT SERV DATE: 05/17/16 DICTATED BY: PAIGE GILLILAND DATE: 05/17/16 REPORT STATUS : Draft TRANSCRIBED BY: ISABELA DATE: 05/17/16 this year. 2. Sepsis, present on arrival. IV fluids. IV antibiotics. Treat #1. Lactate within normal limits. 3. Recurrent pleural effusion. Treat pneumonia. The patient fairly concerned about having repeat tap as the patient reports the last thoracentesis was quite painful and is currently hesitating repeating tap at this time. 4. Diabetes type 2. Sliding scale insulin. Monitor. Hold p.o. medications. 5. Hypertension. Continue home medications to cover for atrial fibrillation. 6. Atrial fibrillation. Telemetry. Check lytes. Continue diltiazem and Eliquis. 7. Obesity. Weight loss. 8. COPD. Quit smoking this year, likely component of difficulty with treatment for HCAP. 9. UTI and yeast infection. Diflucan with history of multiple antibiotics. On treatment for HCAP. Titrate cultures. All questions answered to the patient's family at bedside. Anticipate greater than two midnight inpatient stay. DDN/MODL Paige Gilliland MD / [id number] CC: MD Martinez Lock II, M.D.
--- NOTE | ~2016-05-17 | IDS ---
Interim Discharge Summary [facility] [address] [place]. [address] NAME: SHANTE CAPELLAN : 50 STATUS : ADM IN [facility]#: [id number] AGE: 66 ADM/REG DATE : 05/17/16 MR#: [id number] REPORT SERV DATE: 05/25/16 DICTATED BY: ROCKY STUART DATE: 05/24/16 REPORT STATUS : Draft TRANSCRIBED BY: MODL DATE: 05/24/16 ADMISSION DATE: 05/17/2016 DISCHARGE DATE: DATE OF INTERIM SUMMARY: 05/24/2016 CURRENT DIAGNOSES: 1. Parapneumonic effusion with trapped lung, status post bronchoscopy, right thoracoscopy with complete decortication, and intercostal nerve block, Dr. Ba Pedroza, 05/22/2016. 2. Diffuse mediastinal adenopathy, uncertain etiology. 3. Sepsis, present on admission. 4. Healthcare-associated pneumonia, present on admission. 5. 04/12/2016 to 04/14/2016, hospitalization for acute hypoxic respiratory failure and acute exacerbation of chronic obstructive pulmonary disease. 6. 04/23/2016 to 05/01/2016, hospitalization for Streptococcal pneumonia, sepsis, right lower lobe pneumonia, and pleural effusion. 7. Chronic atrial fibrillation, on Eliquis. 8. Chronic anemia. 9. B12 deficiency. 10.Acute blood loss anemia, with transfusion this admission. 11.Edema, proteinuria, and hypoalbuminemia with 356 mg protein in 12-hour urine collection. Immunofixation pending. 12.Chronic kidney disease III with a creatinine clearance 46.2. 13.Hyperkalemia. 14.Type 2 diabetes with hemoglobin A1c in March 7.5, on oral agents at home. 15.Mitral stenosis. 16.Peripheral arterial disease with previous left lower extremity percutaneous coronary intervention and surgery, left internal carotid artery occlusion and right internal carotid artery and vertebral stenosis. 17.History of transient ischemic attack. 18.Osteoarthritis. 19.Generalized anxiety disorder. 20.Peripheral neuropathy. 21.Coronary disease by CT imaging. 22.Hypotension, improved with medication adjustments (discontinuation of diltiazem and introduction of carvedilol). 23.Weight loss. OPERATION/PROCEDURES: See above. PRESENT ILLNESS: This is a 66-year-old white female, who was triaged in the emergency room on 05/17/2016 at 1358 hours complaining of weakness. After evaluation in the emergency room, she was thought to have pneumonia. She was referred to the Hospitalist Service for admission. She was seen by Dr. Artie Arnold and admitted as described on admission history and physical examination. Interim Discharge Summary [address] [place]. [address] NAME: SHANTE CAPELLAN : 50 STATUS : ADM IN [facility]#: [id number] AGE: 66 ADM/REG DATE : 05/17/16 MR#: [id number] REPORT SERV DATE: 05/25/16 DICTATED BY: ROCKY STUART DATE: 05/24/16 REPORT STATUS : Draft TRANSCRIBED BY: MODJose Antonio DATE: 05/24/16 Additional history is as noted by Dr. Arnold and as noted in the above-mentioned problem list. PHYSICAL EXAMINATION: Per Dr. Arnold. ADMISSION LABORATORY: Per Dr. Arnold. HOSPITAL COURSE: She was admitted by Dr. Arnold with: 1. Healthcare-associated pneumonia. 2. Sepsis. 3. Recurrent pleural effusions. All in the setting of the above-mentioned comorbidities. She was admitted to [address] [place] [address]. Cultures were obtained. She was started on cefepime and vancomycin. Pulmonary consultation was obtained. Her hospitalist care was assumed by the undersigned. Clinically, she did not have significant cough, sputum production, dyspnea, fever, or chills. Her predominant symptoms were fatigue and weakness. A procalcitonin level, on admission, was less than 0.05. A C-reactive protein on 05/19/2016 was 80.2. Her white blood cell count on admission was 14.7. A urine culture on admission grew gram-positive cocci and diphtheroid like organisms. Two blood cultures were no growth at four days. With her presentation, recent past history and symptoms, a CT scan of her chest was performed. This was read as: 1. Bilateral pleural effusions with loculated fluid in the fissure on the right. 2. Coarse peribronchovascular thickening at the right base, possibly due to active inflammation. 3. Extensive mediastinal adenopathy. Pulmonary was concerned about the possible empyema and trapped lung in addition to her extensive mediastinal adenopathy. CT Surgery was consulted. The patient was seen by Dr. Pedroza. On 05/22/2016, the above-mentioned procedure was performed. Findings at the time of surgery were more of a parapneumonic effusion with a lot of fibrinous and gelatinous material trapped within the chest cavity. There were loculations. The lung had a thick peel. A complete decortication was required. There was good re-expansion of the lung at the end of the case. Subsequent cultures were negative. At this time, her chest tube remains in place. Her Eliquis which was held for surgery has been restarted. Symptomatically, she feels better. DISPOSITION: Will be home when her chest tubes can be safely removed and her overall status Interim Discharge Summary [facility] [address] [place]. [address] NAME: SHANTE CAPELLAN : 50 STATUS : ADM IN [facility]#: [id number] AGE: 66 ADM/REG DATE : 05/17/16 MR#: [id number] REPORT SERV DATE: 05/25/16 DICTATED BY: ROCKY STUART DATE: 05/24/16 REPORT STATUS : Draft TRANSCRIBED BY: MODL DATE: 05/24/16 allows. Other issues during her hospitalization have included some variable hypotension. This has resolved with discontinuation of Cardizem used for atrial fibrillation and the institution of low-dose carvedilol. She has significant edema associated without hypoalbuminemia (albumin 1.9 on the 05/22/2016) and proteinuria as described above. Some of this may be nutrition related as in March, when admitted for COPD exacerbation, her albumin was 3.3. Her hemoglobin was 10.1 on admission. It fell to 7.5 on the 05/19/2016. She was transfused for surgery at the request of Anesthesia and her hemoglobin increased to 10.1, it is 10.2 today. She is on chronic B12 replacement. She has a normal TSH of 1.92, a low iron of 28, and TIBC of 207 and a ferritin of 105. Her LDH is borderline high at 272. She has a good reticulocyte count of 4.8% with absolute reticulocytes of 153.3 and one stool negative for Hemoccult. In addition, a serum protein electrophoresis does not show a monoclonal gammopathy. Her blood sugar control has been reasonable with insulin. Her home medications have been restarted. She will require followup of her mediastinal adenopathy with consideration of bronchoscopy and EBUS pending followup. Hospitalist team to assume care in a.m. DD/MODL Rocky Stuart M.D. / [id number] CC: Selma Garcia M.D.
--- NOTE | ~2016-05-17 | OP ---
Record Of Operation [facility] [address] [place]. [address] NAME: SHANTE CAPELLAN : 50 STATUS : ADM IN [facility]#: [id number] AGE: 66 ADM/REG DATE : 05/17/16 MR#: [id number] REPORT SERV DATE: 05/22/16 DICTATED BY: EDGARD PEDROZA JR. DATE: 05/22/16 REPORT STATUS : Draft TRANSCRIBED BY: ISABELA DATE: 05/22/16 DATE OF PROCEDURE: 05/22/2016 PREOPERATIVE DIAGNOSES: Pneumonia, right parapneumonic effusion versus empyema, status post thoracentesis, chronic atrial fibrillation, jxs-ciqgeep-njyoffchx diabetes mellitus type 2, hypertension, increased body mass index. POSTOPERATIVE DIAGNOSES: Pneumonia, right parapneumonic effusion versus empyema, status post thoracentesis, chronic atrial fibrillation, sqx-kpmmazs-yccqxvszs diabetes mellitus type 2, hypertension, increased body mass index. NAME OF OPERATION: Bronchoscopy, right thoracoscopy with complete decortication, intercostal nerve block. SURGEON: Edgard Pedroza M.D. SUPERVISOR BRAKE REPAIR: Rafiq Parmar. ANESTHESIA: General endotracheal. FINDINGS: The patient was noted to have what appeared to be more of a parapneumonic effusion with a lot of fibrinous and gelatinous material trapped within the chest cavity. There were a lot of loculations. The lung had a thick peel on it. We were able to get the fluid and debris removed and sent for cultures. The lung required a complete decortication. There was good reexpansion of the lung tissue at the end of the case. All the fissures were opened up. DETAILS OF OPERATION: After adequate general anesthesia, the patient was intubated. A bronchoscopy was performed noting no endobronchial lesions or contraindication with resection. Mucous secretions were evacuated. A left-sided double-lumen endotracheal tube was then placed. The patient was then positioned in the left lateral decubitus position where the right chest was prepped and draped in routine sterile fashion. A small incision was made overlying the lower intercostal space. A separate anterior trocar incision was also made. Through these two incision sites, above findings were noted. The gelatinous and fibrinous material were excised. The loculations were broken up. The fluid was evacuated. A complete decortication of all three lobes was performed. Both the minor and major fissure was opened up. We were able to get good reexpansion of all three lobes after extensive amount of time performing the decortication. The chest was then thoroughly irrigated with multiple liters of normal sterile water. An intercostal nerve block was performed. Two straight 32-Frisian chest tubes were placed. The lung was reinflated. The single trocar site was closed with running Vicryl sutures. The skin was closed with running monofilament suture. A Dermabond dressing was applied, and the procedure was terminated at this point. The patient tolerated the procedure well and taken back to the recovery room in stable condition. Record Of Operation [facility] [address] [facility] [place]. [address] NAME: SHANTE CAPELLAN : 50 STATUS : ADM IN [facility]#: [id number] AGE: 66 ADM/REG DATE : 05/17/16 MR#: [id number] REPORT SERV DATE: 05/22/16 DICTATED BY: EDGARD PEDROZA JR. DATE: 05/22/16 REPORT STATUS : Draft TRANSCRIBED BY: ISABELA DATE: 05/22/16 TARIQ/ISABELA Edgard Pedroza Jr., M.D. / [id number] CC: Jelani Stuart M.D.
--- NOTE | ~2016-05-17 | DS ---
Discharge Summary [facility] [address] [place]. [address] NAME: SHANTE CAPELLAN : 50 STATUS : DIS IN PAT#: [id number] AGE: 66 ADM/REG DATE : 05/17/16 MR#: [id number] REPORT SERV DATE: 05/27/16 DICTATED BY: PAIGE GILLILAND DATE: 05/26/16 REPORT STATUS : Draft TRANSCRIBED BY: MODL DATE: 05/26/16 ADMISSION DATE: 05/17/2016 DISCHARGE DATE: 05/26/2016 DISCHARGE DIAGNOSES: 1. Parapneumonic effusion with trapped lung status post bronch, right thoracostomy, complete decortication, intercostal nerve block by Dr. Pedroza on 05/22/2016, diffuse mediastinal adenopathy, to have followup CT in one to three months with Pulmonology for re-evaluation. 2. Sepsis persistent, present on arrival. 3. Health care-associated pneumonia on arrival. 4. Acute hypoxic respiratory failure. 5. Acute chronic obstructive pulmonary disease exacerbation. 6. Strep pneumonia in the right lower lobe with pleural effusion. 7. Chronic atrial fibrillation, on Eliquis. 8. Chronic anemia, on B12. 9. Acute blood loss anemia. 10.Edema, proteinuria, and hypoalbuminemia. 11.Chronic kidney disease, stage 3. 12.Hyperkalemia. 13.Type 2 diabetes with an A1c of 7.5. 14.Mitral stenosis. 15.Peripheral arterial disease. 16.Transient ischemic attack history. 17.Osteoarthritis. 18.Generalized anxiety. 19.Peripheral neuropathy. 20.Hypotension. DISCHARGE MEDICATIONS: 1. Eliquis 5 mg one tablet p.o. b.i.d. 2. Atorvastatin 40 mg one tablet p.o. daily. 3. Janumet one tablet p.o. b.i.d. 4. Coreg 6.25 mg one tablet p.o. b.i.d. 5. Vitamin B12 1000 mcg IM q.30 days. 6. Folic acid daily. 7. Mag oxide 1200 mg p.o. daily and 800 mg one tablet p.o. at bedtime. 8. Multivitamin. 9. Protonix 40 mg one tablet p.o. daily. 10.Qisc-vcz-rnlplee MiraLAX. 11.Spiriva 18 mcg p.o. inhalation. 12.Metformin 1000 mg one tab p.o. before breakfast. 13.Albuterol two puffs inhalation t.i.d. 14.Xanax 1 mg p.o. t.i.d. 15.Mcdowell 10/325 mg one tablet p.o. t.i.d. 16.Aspirin 81 mg one tablet p.o. daily. Discharge Summary [facility] [address] [place]. [address] NAME: SHANTE CAPELLAN : 50 STATUS : DIS IN PAT#: [id number] AGE: 66 ADM/REG DATE : 05/17/16 MR#: [id number] REPORT SERV DATE: 05/27/16 DICTATED BY: PAIGE GILLILAND DATE: 05/26/16 REPORT STATUS : Draft TRANSCRIBED BY: ISABELA DATE: 05/26/16 17.Ocupress one drop b.i.d. 18.Breo Ellipta. 19.Mcdowell 5/325 mg one tablet p.o. q.4 hours p.r.n. breakthrough pain. HOSPITAL COURSE: Please see H and P by this ghost writer on 05/17/2016 for complete details of HPI and interim summary by Dr. Jelani Stuart on 05/25/2016. Briefly, this is a 66-year-old female who presents after initially having pneumonia type symptoms, HCAP with sepsis in the setting of recurrent pleural effusions. She was started on empiric cefepime and vancomycin given HCAP setting. Pulmonary consultation was obtained due to repeated pleural effusions, although reactive components of procalcitonin is less than 0.05. The patient did have leukocytosis over 14.7. The patient did have CT of bilateral pleural effusions, extensive mediastinal adenopathy, which will still need continued follow with either PCP or Pulmonology preferably after improvement of acute phase from hospital discharge. Concern initially was for empyema and CT Surgery was consulted. Dr. Pedroza evaluated for trapped lung and loculations, complete decortication was required with subsequent reexpansion of the lung. Cultures have been negative. The patient was able to have chest tube discharge and was feeling much improved and was okay for discharge by Pulmonary and CT Surgery. We will need to follow up for mediastinal adenopathy with deferring of bronchoscopy EBUS to Pulmonary upon followup. The patient at the time of discharge felt comfortable back to her baseline and stronger, and was extremely eager to be discharged home. All questions were answered of the patient and family at bedside. The patient to have followup with PCP in one week of hospital D/C with Dr. Freedman; Pulmonary in two to four weeks with Dr. Pedroza on 06/21/2016. Thank you, Dr. Freedman, for allowing us to assist in the care of this patient. D/C planning, med reconciliation, education, coordination of care took greater than 30 minutes. DDN/MODL Paige Gilliland MD / [id number] CC: MD Martinez Fontanez M.D.
--- NOTE | ~2016-05-17 | CN ---
Consultation Report [facility] [address] [place]. [address] NAME: NEVAEH GOMEZ : 50 STATUS : ADM IN PAT#: [id number] AGE: 66 ADM/REG DATE : 05/17/16 MR#: [id number] REPORT SERV DATE: 05/18/16 DICTATED BY: MAURICIO DOW DATE: 05/18/16 REPORT STATUS : Draft TRANSCRIBED BY: MODL DATE: 05/18/16 CONSULTATION DATE OF CONSULTATION: 05/18/2016 REQUESTING PHYSICIAN: Dr. Arnold. CHIEF COMPLAINT: Worsening shortness of breath in a patient, who was recently treated for bilateral pneumonia. HISTORY OF PRESENT ILLNESS: Mrs. Nevaeh Gomez is a very pleasant 66-year-old white female with a past medical history significant for COPD with oxygen dependence, atrial fibrillation, on chronic anticoagulation, valvular heart disease, and recent pneumonia, who presents to [facility]'s Emergency Room with complaints of weakness, loss of appetite, and worsening shortness of breath of four to five days duration. It should be noted that, Mrs. Gomez was hospitalized as recently as two weeks ago, when she was treated for bilateral pneumonia and hypotension. The patient has had a difficult course in the short interval. Mrs. Gomez has not established with a extractions technician. She is on supplemental oxygen at 2- 3 L continuously. She is on a pulmonary regimen of albuterol. The patient quit smoking approximately a month ago, prior to this time, she smoked approximately one to two packs per day for a period of forty years. She largely denies symptomatology related to obstructive sleep apnea. She describes her exercise tolerance prior to these recent illnesses being excellent, being able to walk a city block before experiencing any shortness of breath. Again, the patient was hospitalized approximately two weeks ago, where she was seen on the Critical Care Service for bilateral pneumonia and concomitant hypotension. She did require pressors at some point. She was being able to be weaned off these eventually. She was treated with cefepime and vancomycin. She did unfortunately develop a right pleural effusion, which was eventually drained, 700 mL of fluid was aspirated from the pleural space. Protein was 2.5. LDH was 422. There are no cultures or path reports available on this fluid. The patient was soon after discharged. She did fairly well for three to four days. She did eventually develop some degree of weakness as well as decreased appetite. She presented to her primary care physician as recently as last , where some blood work was obtained. By her report, she did have some leukocytosis, although antibiotics were not started. She was scheduled to follow up with him this week; however, she began to develop shortness of breath as well as some mild wheezing. She did have an episode of rigors, which prompted her presentation to [facility]'s Emergency Room. Upon arrival, she was found to be hypertensive with a systolic blood pressure of 168. She was normotensive. Her oxygenation was 97% on two liters. [place] [address]. Her creatinine was 0.87. She did eventually undergo a chest x-ray, which demonstrated pleural effusion in the right lower lobe. Since this time, she has had some hypotension. For the aforementioned reasons, she has been referred to the Consultation Report [address] [place]. [address] NAME: NEVAEH GOMEZ : 50 STATUS : ADM IN [facility]#: [id number] AGE: 66 ADM/REG DATE : 05/17/16 MR#: [id number] REPORT SERV DATE: 05/18/16 DICTATED BY: MAURICIO DOW DATE: 05/18/16 REPORT STATUS : Draft TRANSCRIBED BY: ISABELA DATE: 05/18/16 Pulmonary service for further assessment. Currently, the patient is on 2-3 L with good oxygenation. She is not producing any purulent sputum. She denies any wheezing. She has had no recent episodes of hemoptysis. She does have known COPD with oxygen dependence. The patient does have known hypertension, permanent atrial fibrillation on anticoagulation, she does have known mitral stenosis. She currently denies any murmurs, angina, or palpitations. She states that over the last one to two days, she has had little bit of edema, although this is better today. She currently denies any nausea, vomiting. That being said, she does have decreased appetite. She denies any abdominal pain. PAST MEDICAL HISTORY: 1. Gastroesophageal reflux disease. 2. Diabetes mellitus. 3. Dyslipidemia. 4. Peripheral vascular disease. 5. COPD. 6. TIA. 7. Mitral stenosis. 8. Atrial fibrillation, on chronic anticoagulation. 9. Recent pneumonia. PAST SURGICAL HISTORY: 1. Cholecystectomy. 2. Total abdominal hysterectomy with bilateral salpingo-oophorectomy. 3. Total right knee replacement. 4. Gastric bypass surgery with subsequent reversal. 5. Left lower extremity stent placement x2. 6. Appendectomy. FAMILY HISTORY: The patient states that, she has a brother with asthma. SOCIAL HISTORY: The patient is with her currently at bedside. She has no children. She has worked for the last forty years at the [employer] at night. She denies any known exposures to dust, silica, or asbestos. TOBACCO/ALCOHOL: As previously mentioned, the patient quit smoking approximately one month ago, prior to this time, she smoked upwards of one to two packs a day for a period of forty years. She denies any recent alcohol or illicit drug use. REVIEW OF SYSTEMS: A complete review of systems was performed with pertinent positives and negatives contained Consultation Report [address] [place]. [address] NAME: NEVAEH GOMEZ : 50 STATUS : ADM IN [facility]#: [id number] AGE: 66 ADM/REG DATE : 05/17/16 MR#: [id number] REPORT SERV DATE: 05/18/16 DICTATED BY: MAURICIO DOW DATE: 05/18/16 REPORT STATUS : Draft TRANSCRIBED BY: ISABELA DATE: 05/18/16 within the body of the [facility]. PHYSICAL EXAMINATION: VITAL SIGNS: Blood pressure is 103/56, heart rate is 91, T-max is 97.5, respiratory rate is 18, SpO2 is 100% on 2 L. GENERAL: The patient is a pleasant, well-nourished/well-developed female, who is not currently exhibiting any signs of acute distress. Skin: Skin with appropriate texture and turgor. No rashes, lesions, or ulcers. Nails are clear without cyanosis or clubbing. HEENT: Head: Skull is normocephalic/atraumatic. Facies symmetric. No masses or lesions. Eyes: Sclera anicteric, conjunctiva pink without exudates. Extra ocular movements intact. Pupils are equal, round, reactive to light. Ears: Auricles and tragus without pain to palpation. Hearing is grossly intact. Nose: Bilateral nasal patency. Sinuses without tenderness upon palpation. Throat: The patient is edentulous. Lips, oral mucosa, tongue, palate, and pharynx pink and moist without lesions. Uvula rises equally on phonation. Tongue midline without deviation. NECK: Neck supple. Trachea midline. No cervical lymphadenopathy appreciated. THORAX/LUNGS: Inspiratory crackles in the posterior bases. There is some dullness to percussion in the right lower lobe. CARDIOVASCULAR: Irregular rhythm, rate controlled. No murmurs, rubs, or gallops. Anterior chest without thrills, heaves, or lifts. ABDOMEN: Soft. Non-distended, non-tender. Active bowel sounds in all four quadrants. No hepatosplenomegaly noted. PERIPHERAL VASCULAR: No edema. No varicosities, stasis changes, open sores, ulcerations, or phlebitis. 2+ pulses in radial and dorsalis pedis. MUSCULOSKELETAL: Full AROM and PROM in all joints. No evidence of erythema, deformity, or crepitus. NEUROLOGIC: CN II - XII grossly intact. Good muscle bulk and tone bilaterally. Strength 5/5 throughout. PSYCHIATRIC: The patient demonstrates good judgment and insight. The patient is A&O x3. ACCESSORY DATA: Reveals creatinine 0.76, Mag is 1.4, procalcitonin is 0.05. White blood cell count is 13,500. PA and lateral reveals persistent infiltrate and effusion in the right lower lobe camargo. IMPRESSION: 1. Hypotension - improving. 2. Recurrent right pleural effusion - exudative. 3. Healthcare-associated Pneumonia. 4. Chronic obstructive pulmonary disease. 5. Atrial fibrillation. 6. Diabetes mellitus. PLAN: 1. At this time, the patient has received aggressive fluid resuscitation with some Consultation Report [address] [address] NAME: NEVAEH GOMEZ AMAURY : 50 STATUS : ADM IN [facility]#: [id number] AGE: 66 ADM/REG DATE : 05/17/16 MR#: [id number] REPORT SERV DATE: 05/18/16 DICTATED BY: MAURICIO DOW DATE: 05/18/16 REPORT STATUS : Draft TRANSCRIBED BY: MODL DATE: 05/18/16 improvement in blood pressure. We will certainly watch this moving forward. 2. In regard to the patient's right recurrent pleural effusion, we will plan on a CT of the chest to better evaluate the pleural space. It would be unlikely that she has empyema given her nontoxic appearance. That being said, a more thorough investigation of the pleural space is warranted. She did describe some discomfort after her previous thoracentesis suggesting a possible loculated component. Again after imaging studies, we will follow further recommendations. 3. The patient is on HCAP coverage at this time. 4. In regard to the patient's COPD, she is not clearly demonstrating signs consistent with acute exacerbation. We will place her on a full armamentarium of nebulized medications. The aforementioned impression and plan has been discussed with Dr. David, who will follow further recommendations. We thank you for this consult and look forward to participating in the care of Mrs. Nevaeh Gomez. GBS/MODL Mauricio Dow PA-C / [id number] CC: MD Martinez Lock II, M.D.
--- NOTE | ~2016-05-17 | CN ---
Consultation Report [facility] [address] [place]. [address] NAME: SHANTE CAPELLAN : 50 STATUS : ADM IN PAT#: [id number] AGE: 66 ADM/REG DATE : 05/17/16 MR#: [id number] REPORT SERV DATE: 05/21/16 DICTATED BY: EDNA TREVIÑO DATE: 05/21/16 REPORT STATUS : Draft TRANSCRIBED BY: MODL DATE: 05/21/16 CONSULTATION AND HISTORY AND PHYSICAL DATE OF CONSULTATION: 05/21/2016 REASON FOR CONSULTATION: Left loculated pleural effusion. BRIEF HISTORY: This is a 66-year-old female with history of Strep pneumonia with right pleural effusion treated approximately two weeks ago with antibiotics as well as a right thoracentesis and had 700 mL of fluid relieved at that time, and she was discharged home. She re-presented with shortness of breath. Further evaluation revealed recurrent right pleural effusion with loculation and lateral wall tracking and she has a significant past smoking history having quit approximately a month ago, but having smoked up to one to two packs a day for 40 years. She also has a history of atrial fibrillation. She is currently rate controlled as well as diabetes mellitus, mitral stenosis with COPD with oxygen dependence, gastroesophageal reflux disease, and peripheral vascular disease. We are asked to see her for possible right thoracoscopy with decortication. PAST MEDICAL HISTORY: Significant for gastroesophageal reflux disease, diabetes mellitus, dyslipidemia, peripheral vascular disease, history of TIA, COPD with significant past smoking history, mitral stenosis, atrial fibrillation which is rate controlled, and recent bilateral pneumonia. PAST SURGICAL HISTORY: Significant for cholecystectomy, hysterectomy, right total knee replacement, gastric bypass surgery with reversal, left lower extremity stenting on two separate occasions as well as appendectomy. FAMILY HISTORY: Significant for a brother with asthma. SOCIAL HISTORY: The patient is and has children. She worked at the [employer] and she denies any exposure history, but previously smoked one to two packs per day for 40 years and quit approximately a month ago. REVIEW OF SYSTEMS: Significant for shortness of breath and fatigue. A complete 12-point review of system was performed. All other systems were negative except for the above-mentioned pertinent positives in the history of present illness. PHYSICAL EXAMINATION: VITAL SIGNS: Oxygen saturation 95% on 2 L. Blood pressure 119/72, afebrile, heart rate 97. Height 5 feet 7 inches, weight 87 kg. GENERAL: This is a 66-year-old female, who is alert and oriented in no acute distress. HEENT: Normocephalic, atraumatic. Pupils equal, round, react to light. Ears, nose, and throat without lesions or exudate. Consultation Report [facility] [address] [place]. [address] NAME: SHANTE CAPELLAN : 50 STATUS : ADM IN [facility]#: [id number] AGE: 66 ADM/REG DATE : 05/17/16 MR#: [id number] REPORT SERV DATE: 05/21/16 DICTATED BY: EDNA TREVIÑO DATE: 05/21/16 REPORT STATUS : Draft TRANSCRIBED BY: ISABELA DATE: 05/21/16 NECK: Supple with no lymphadenopathy, JVD, or bruits. Trachea midline. No obvious goiter. CHEST: Symmetrical with no chest wall deformities. CARDIOVASCULAR: Regular rate and rhythm, S1 and S2. No murmurs or gallops. RESPIRATORY: Decreased bilaterally, greater on the right than the left. ABDOMEN: Soft, nontender, nondistended. Positive bowel sounds in all four quadrants. No hepatosplenomegaly. : The patient voids without difficulty. RECTAL: Examination was deferred. MUSCULOSKELETAL: No obvious kyphosis or scoliosis. SKIN: Warm and dry with no turgor. No obvious breakdown or lesions noted. EXTREMITIES: 2+ pulses bilaterally. Trace edema. PSYCHIATRIC: Normal mood and affect. She is pleasant. NEUROLOGIC: No focal neurological deficits noted. DATA: Laboratories dated 05/21/2016: Sodium 139, potassium 4.1, BUN 15, creatinine 0.8, glucose 180. BNP dated 05/18/2016 596. Hemoglobin A1c dated 05/19/2016 7.5. Hematology dated 05/21/2016: White blood cell count 8.6, hemoglobin 7.6, hematocrit 24.8, platelet count 316. CT of the chest dated 05/18/2016 showing bilateral pleural effusions with loculated fluid within the fissures on the right, coarse peribronchovascular thickening at the right base and extensive mediastinal adenopathy. PROBLEM LIST: 1. Recurrent right pleural effusion with loculated component status post bilateral pneumonia. 2. Diabetes mellitus. 3. Atrial fibrillation. 4. COPD. 5. Gastroesophageal reflux disease. 6. Mitral stenosis. 7. History of previous tobacco abuse. 8. History of TIA. 9. Peripheral vascular disease. IMPRESSION AND PLAN: This is a 66-year-old female with a recurrent loculated right pleural effusion status post Strep pneumonia. She has undergone a thoracentesis approximately two weeks ago, which relieved 700 mL of fluid from the right chest. She re-presented to the emergency department with increasing shortness of breath and on CT was noted to have loculated right pleural effusion. We are asked to see the patient for possible right thoracoscopy decortication given the lateral wall tracking as well as loculated component and history of Strep pneumonia. We will move forward with right thoracoscopy decortication tomorrow morning. We discussed this with the patient and her family. We discussed the risks, benefits, and expected outcomes of the planned procedure, and she is willing to proceed as outlined above. We will make her n.p.o. after midnight. Given her history of atrial fibrillation, that might pose some postoperative complications, but we will utilize Cardiology if she has any issues. Consultation Report [address] [address] NAME: SHANTE CAPELLAN : 50 STATUS : ADM IN [facility]#: [id number] AGE: 66 ADM/REG DATE : 05/17/16 MR#: [id number] REPORT SERV DATE: 05/21/16 DICTATED BY: EDNA TREVIÑO DATE: 05/21/16 REPORT STATUS : Draft TRANSCRIBED BY: ISABELA DATE: 05/21/16 AM/ISABELA Edna Treviño NP / [id number]
[2016-05-17 15:02] LABS: BASOPHILS 0.1 %; BASOPHILS ABSOLUTE 0.02 10/3/uL (0.0-0.16); EOSINOPHILS 0.3 %; EOSINOPHILS ABSOLUTE 0.04 10/3/uL (0.0-0.53); ER CBC TAT 0 Hrs 08 Mins; HEMOGLOBIN 10.1 g/dL (12.0-16.0); IMMATURE GRANULOCYTES 0.5 %; IMMATURE GRANULOCYTES ABSOLUTE 0.08 10/3/uL (0.0-0.11); LYMPHOCYTES 6.2 %; LYMPHOCYTES ABSOLUTE 0.91 10/3/uL (0.67-4.30); MANUAL DIFF NO %; MEAN CORPUS HGB CONC 30.6 g/dL (32.0-36.0); MEAN CORPUSCULAR HEMOGLOB 26.6 pg (26.0-34.0); MEAN CORPUSCULAR VOLUME 87.1 fL (80-100); MEAN PLATELET VOLUME 9.1 fL (9.2-13.0); MONOCYTES 4.3 %; MONOCYTES ABSOLUTE 0.63 10/3/uL (0.21-1.20); NEUTROPHILS 88.6 %; NEUTROPHILS ABSOLUTE 13.04 10/3/uL (2.02-8.40); PLATELET COUNT 485 10/3/uL (150-400); RBC DISTRIBUTION WIDTH 18.5 % (12.0-16.0); RED CELL COUNT 3.79 10/6/uL (4.0-5.6); WHITE BLOOD CELLS 14.7 10/3/uL (4.5-10.5)
[2016-05-17 15:18] LABS: ALBUMIN 2.2 G/DL (3.5-5.0); BUN (BLOOD UREA NITROGEN) 14 MG/DL (6-23); CALCIUM, SERUM 8.7 MG/DL (8.5-10.4); CHLORIDE, SERUM 100 MMOL/L (96-112); CO2 (CARBON DIOXIDE) 31 MMOL/L (24-34); CPK 47 U/L (0-200); CREATININE 0.87 MG/DL (0.55-1.02); GFR AFRICAN AMERICAN 80 ML/MIN (>=60); GFR NON AFRICAN AMERICAN 69 ML/MIN (>=60); SGPT(ALT) 15 U/L (5-65); SODIUM, SERUM 140 MMOL/L (135-148); TROPONIN I 0.02 NG/ML (<0.05)
[2016-05-17 15:19] LABS: A/G RATIO 0.4 (0.7-1.9); ALKALINE PHOSPHATASE 107 U/L (45-117); GLOBULIN 5.5 G/DL (2.5-4.1); GLUCOSE, SERUM 72 MG/DL (60-99); POTASSIUM, SERUM 3.6 MMOL/L (3.5-5.3); SGOT(AST) 32 U/L (5-40); TOTAL BILIRUBIN 1.1 MG/DL (0-1.2); TOTAL PROTEIN 7.7 G/DL (6.0-8.5)
[~2016-05-17 15:40] MED LIST changes: +DSS PO; +LIPITOR40 PO
[2016-05-17 16:22] LABS: ASCORBIC ACID (UR NOT ORDER) NEG (NEG); BILIRUBIN, URINE NEGATIVE (NEG); ER URINALYSIS TAT 0 Hrs 11 Mins; KETONE, URINE TRACE MG/DL (NEG); LEUKOCYTE ESTERASE(NOT OR LARGE (NEG); NITRITE (URINE) NEG (NEG); WBC (NOT ORDERED) (RFLEX) 18 (0-5)
[2016-05-17] MEDS ORDERED: ACTOS30 PO (17:27)
[2016-05-17 17:48] LABS: PROCALCITONIN <0.05 ng/mL (<0.5)
[2016-05-18 03:52] LABS: BASOPHILS 0.2 %; BASOPHILS ABSOLUTE 0.03 10/3/uL (0.0-0.16); EOSINOPHILS 0.4 %; EOSINOPHILS ABSOLUTE 0.06 10/3/uL (0.0-0.53); HEMOGLOBIN 8.9 g/dL (12.0-16.0); IMMATURE GRANULOCYTES 0.4 %; IMMATURE GRANULOCYTES ABSOLUTE 0.06 10/3/uL (0.0-0.11); LYMPHOCYTES 7.6 %; LYMPHOCYTES ABSOLUTE 1.03 10/3/uL (0.67-4.30); MEAN CORPUS HGB CONC 30.3 g/dL (32.0-36.0); MEAN CORPUSCULAR HEMOGLOB 26.5 pg (26.0-34.0); MEAN CORPUSCULAR VOLUME 87.5 fL (80-100); MEAN PLATELET VOLUME 8.9 fL (9.2-13.0); MONOCYTES 5.6 %; MONOCYTES ABSOLUTE 0.76 10/3/uL (0.21-1.20); NEUTROPHILS 85.8 %; NEUTROPHILS ABSOLUTE 11.56 10/3/uL (2.02-8.40); NUCLEATED RED BLOOD CELLS 0.4 /100WBC (0-0); PLATELET COUNT 412 10/3/uL (150-400); RBC DISTRIBUTION WIDTH 18.5 % (12.0-16.0); RED CELL COUNT 3.36 10/6/uL (4.0-5.6); WHITE BLOOD CELLS 13.5 10/3/uL (4.5-10.5)
[2016-05-18 03:54] LABS: HEMATOCRIT 29.4 % (36.0-48.0); MANUAL DIFF NO %
[2016-05-18 04:09] LABS: A/G RATIO 0.4 (0.7-1.9); ALBUMIN 1.8 G/DL (3.5-5.0); BUN (BLOOD UREA NITROGEN) 12 MG/DL (6-23); CALCIUM, SERUM 8.1 MG/DL (8.5-10.4); CHLORIDE, SERUM 105 MMOL/L (96-112); CO2 (CARBON DIOXIDE) 29 MMOL/L (24-34); CREATININE 0.76 MG/DL (0.55-1.02); GFR AFRICAN AMERICAN 95 ML/MIN (>=60); GFR NON AFRICAN AMERICAN 82 ML/MIN (>=60); GLOBULIN 4.5 G/DL (2.5-4.1); GLUCOSE, SERUM 59 MG/DL (60-99); POTASSIUM, SERUM 3.2 MMOL/L (3.5-5.3); SGOT(AST) 16 U/L (5-40); SGPT(ALT) 11 U/L (5-65); SODIUM, SERUM 143 MMOL/L (135-148); TOTAL BILIRUBIN 0.8 MG/DL (0-1.2); TOTAL PROTEIN 6.3 G/DL (6.0-8.5)
[2016-05-18 04:10] LABS: ALKALINE PHOSPHATASE 87 U/L (45-117)
[2016-05-19 06:36] LABS: BASOPHILS 0.3 %; BASOPHILS ABSOLUTE 0.03 10/3/uL (0.0-0.16); EOSINOPHILS 1.2 %; EOSINOPHILS ABSOLUTE 0.13 10/3/uL (0.0-0.53); HEMOGLOBIN 7.5 g/dL (12.0-16.0); IMMATURE GRANULOCYTES 0.4 %; IMMATURE GRANULOCYTES ABSOLUTE 0.04 10/3/uL (0.0-0.11); LYMPHOCYTES 10.8 %; LYMPHOCYTES ABSOLUTE 1.13 10/3/uL (0.67-4.30); MEAN CORPUSCULAR HEMOGLOB 26.9 pg (26.0-34.0); MEAN CORPUSCULAR VOLUME 89.6 fL (80-100); MEAN PLATELET VOLUME 8.8 fL (9.2-13.0); MONOCYTES 5.7 %; NEUTROPHILS 81.6 %; NEUTROPHILS ABSOLUTE 8.54 10/3/uL (2.02-8.40); PLATELET COUNT 346 10/3/uL (150-400); RBC DISTRIBUTION WIDTH 18.4 % (12.0-16.0); RED CELL COUNT 2.79 10/6/uL (4.0-5.6); WHITE BLOOD CELLS 10.5 10/3/uL (4.5-10.5)
[2016-05-19 06:37] LABS: MANUAL DIFF NO %
[2016-05-19 06:53] LABS: BUN (BLOOD UREA NITROGEN) 15 MG/DL (6-23); CALCIUM, SERUM 7.3 MG/DL (8.5-10.4); CHLORIDE, SERUM 110 MMOL/L (96-112); CO2 (CARBON DIOXIDE) 26 MMOL/L (24-34); CREATININE 0.79 MG/DL (0.55-1.02); GFR AFRICAN AMERICAN 90 ML/MIN (>=60); GFR NON AFRICAN AMERICAN 78 ML/MIN (>=60); POTASSIUM, SERUM 3.9 MMOL/L (3.5-5.3); SODIUM, SERUM 142 MMOL/L (135-148)
[2016-05-19 06:55] LABS: GLUCOSE, SERUM 152 MG/DL (60-99); PHOSPHORUS, SERUM 1.5 MG/DL (2.5-4.5)
[2016-05-19 19:02] LABS: C-REACTIVE PROTEIN 80.2 MG/L (<8.0)
[2016-05-20 04:42] LABS: HEMATOCRIT 26.1 % (36.0-48.0); HEMOGLOBIN 7.8 g/dL (12.0-16.0); MEAN CORPUS HGB CONC 29.9 g/dL (32.0-36.0); MEAN CORPUSCULAR HEMOGLOB 26.3 pg (26.0-34.0); MEAN CORPUSCULAR VOLUME 87.9 fL (80-100); MEAN PLATELET VOLUME 8.7 fL (9.2-13.0); PLATELET COUNT 342 10/3/uL (150-400); RBC DISTRIBUTION WIDTH 18.3 % (12.0-16.0); RED CELL COUNT 2.97 10/6/uL (4.0-5.6); WHITE BLOOD CELLS 11.3 10/3/uL (4.5-10.5)
[2016-05-20 04:46] LABS: MANUAL DIFF YES %
[2016-05-20 04:51] LABS: BUN (BLOOD UREA NITROGEN) 16 MG/DL (6-23); CALCIUM, SERUM 7.7 MG/DL (8.5-10.4); CHLORIDE, SERUM 103 MMOL/L (96-112); CO2 (CARBON DIOXIDE) 27 MMOL/L (24-34); CREATININE 0.75 MG/DL (0.55-1.02); GFR AFRICAN AMERICAN 96 ML/MIN (>=60); GFR NON AFRICAN AMERICAN 83 ML/MIN (>=60); GLUCOSE, SERUM 133 MG/DL (60-99); PHOSPHORUS, SERUM 2.3 MG/DL (2.5-4.5); POTASSIUM, SERUM 3.9 MMOL/L (3.5-5.3); SODIUM, SERUM 139 MMOL/L (135-148)
[2016-05-20 06:05] LABS: BAND NEUTROPHILS 5 %; EOSINOPHILS 1 %; EOSINOPHILS ABSOLUTE (CALC) 0.11 10/3/uL (0.0-0.53); HYPOCHROMIA 1+ (3-10/OIF) (0-2/OIF); LYMPHOCYTES 5 %; LYMPHOCYTES ABSOLUTE (CALC) 0.57 10/3/uL (0.67-4.30); MONOCYTES 3 %; MONOCYTES ABSOLUTE (CALC) 0.34 10/3/uL (0.21-1.20); NEUTROPHILS ABSOLUTE (CALC) 10.28 10/3/uL (2.02-8.40); SEGMENTED NEUTROPHIL (0) 86 %; TOTAL NUCLEATED CELLS 100
[2016-05-20 06:06] LABS: ANISOCYTOSIS 1+ (5-10/OIF) (0-5/OIF); PLATELET ESTIMATE ADQ (ADEQUATE)
[2016-05-21 07:56] LABS: BASOPHILS 0.2 %; BASOPHILS ABSOLUTE 0.02 10/3/uL (0.0-0.16); EOSINOPHILS ABSOLUTE 0.09 10/3/uL (0.0-0.53); HEMATOCRIT 24.8 % (36.0-48.0); HEMOGLOBIN 7.6 g/dL (12.0-16.0); IMMATURE GRANULOCYTES 0.3 %; IMMATURE GRANULOCYTES ABSOLUTE 0.03 10/3/uL (0.0-0.11); LYMPHOCYTES ABSOLUTE 0.86 10/3/uL (0.67-4.30); MEAN CORPUS HGB CONC 30.6 g/dL (32.0-36.0); MEAN CORPUSCULAR HEMOGLOB 26.6 pg (26.0-34.0); MEAN CORPUSCULAR VOLUME 86.7 fL (80-100); MEAN PLATELET VOLUME 8.7 fL (9.2-13.0); MONOCYTES 6.3 %; MONOCYTES ABSOLUTE 0.54 10/3/uL (0.21-1.20); NEUTROPHILS 82.2 %; NEUTROPHILS ABSOLUTE 7.05 10/3/uL (2.02-8.40); PLATELET COUNT 316 10/3/uL (150-400); RBC DISTRIBUTION WIDTH 18.5 % (12.0-16.0); RED CELL COUNT 2.86 10/6/uL (4.0-5.6); WHITE BLOOD CELLS 8.6 10/3/uL (4.5-10.5)
[2016-05-21 08:00] LABS: MANUAL DIFF NO %
[2016-05-21 08:06] LABS: BUN (BLOOD UREA NITROGEN) 15 MG/DL (6-23); CALCIUM, SERUM 7.9 MG/DL (8.5-10.4); CHLORIDE, SERUM 105 MMOL/L (96-112); CO2 (CARBON DIOXIDE) 27 MMOL/L (24-34); GFR AFRICAN AMERICAN 89 ML/MIN (>=60); GFR NON AFRICAN AMERICAN 77 ML/MIN (>=60); PHOSPHORUS, SERUM 2.6 MG/DL (2.5-4.5); POTASSIUM, SERUM 4.1 MMOL/L (3.5-5.3); SODIUM, SERUM 139 MMOL/L (135-148)
[2016-05-21 08:07] LABS: GLUCOSE, SERUM 180 MG/DL (60-99)
[2016-05-21 14:06] LABS: T PROTEIN (ELECT)(NOT OR 5.5 G/DL (6.0-8.5)
[2016-05-21 16:22] LABS: IMMUNOGLOBULIN A 203 MG/DL (70-420); IMMUNOGLOBULIN G 1040 MG/DL (673-1464); IMMUNOGLOBULIN M 81 MG/DL (30-270)
[2016-05-22 04:18] LABS: A/G RATIO 0.4 (0.7-1.9); ALBUMIN 1.9 G/DL (3.5-5.0); ALKALINE PHOSPHATASE 84 U/L (45-117); BASOPHILS 0.6 %; BASOPHILS ABSOLUTE 0.05 10/3/uL (0.0-0.16); BUN (BLOOD UREA NITROGEN) 17 MG/DL (6-23); CALCIUM, SERUM 8.4 MG/DL (8.5-10.4); CHLORIDE, SERUM 102 MMOL/L (96-112); CO2 (CARBON DIOXIDE) 26 MMOL/L (24-34); EOSINOPHILS 0.9 %; EOSINOPHILS ABSOLUTE 0.08 10/3/uL (0.0-0.53); GFR AFRICAN AMERICAN 77 ML/MIN (>=60); GFR NON AFRICAN AMERICAN 67 ML/MIN (>=60); GLOBULIN 4.9 G/DL (2.5-4.1); IMMATURE GRANULOCYTES 0.2 %; IMMATURE GRANULOCYTES ABSOLUTE 0.02 10/3/uL (0.0-0.11); LYMPHOCYTES 12.4 %; LYMPHOCYTES ABSOLUTE 1.12 10/3/uL (0.67-4.30); MEAN CORPUS HGB CONC 31.7 g/dL (32.0-36.0); MEAN CORPUSCULAR HEMOGLOB 27.3 pg (26.0-34.0); MEAN CORPUSCULAR VOLUME 86.2 fL (80-100); MEAN PLATELET VOLUME 9.1 fL (9.2-13.0); MONOCYTES 4.9 %; MONOCYTES ABSOLUTE 0.44 10/3/uL (0.21-1.20); NEUTROPHILS ABSOLUTE 7.34 10/3/uL (2.02-8.40); NUCLEATED RED BLOOD CELLS 0.2 /100WBC (0-0); PLATELET COUNT 331 10/3/uL (150-400); POTASSIUM, SERUM 4.4 MMOL/L (3.5-5.3); RBC DISTRIBUTION WIDTH 16.8 % (12.0-16.0); SGOT(AST) 16 U/L (5-40); SGPT(ALT) 15 U/L (5-65); SODIUM, SERUM 139 MMOL/L (135-148); TOTAL BILIRUBIN 1.2 MG/DL (0-1.2); TOTAL PROTEIN 6.8 G/DL (6.0-8.5); WHITE BLOOD CELLS 9.1 10/3/uL (4.5-10.5)
[2016-05-22 04:19] LABS: HEMATOCRIT 31.9 % (36.0-48.0); HEMOGLOBIN 10.1 g/dL (12.0-16.0)
[2016-05-22 04:20] LABS: MANUAL DIFF NO %
[2016-05-22 04:22] LABS: GLUCOSE, SERUM 259 MG/DL (60-99)
[2016-05-22 06:47] LABS: ASCORBIC ACID (UR NOT ORDER) NEG (NEG); BILIRUBIN, URINE NEGATIVE (NEG); KETONE, URINE NEGATIVE (NEG); LEUKOCYTE ESTERASE(NOT OR NEG (NEG); WBC (NOT ORDERED) (RFLEX) 3 (0-5)
[2016-05-23 05:17] LABS: BASOPHILS 0.1 %; BASOPHILS ABSOLUTE 0.01 10/3/uL (0.0-0.16); EOSINOPHILS 0 %; HEMATOCRIT 31.1 % (36.0-48.0); HEMOGLOBIN 9.7 g/dL (12.0-16.0); IMMATURE GRANULOCYTES 0.2 %; IMMATURE GRANULOCYTES ABSOLUTE 0.02 10/3/uL (0.0-0.11); LYMPHOCYTES 5.7 %; LYMPHOCYTES ABSOLUTE 0.66 10/3/uL (0.67-4.30); MEAN CORPUS HGB CONC 31.2 g/dL (32.0-36.0); MEAN CORPUSCULAR HEMOGLOB 27.3 pg (26.0-34.0); MEAN CORPUSCULAR VOLUME 87.6 fL (80-100); MEAN PLATELET VOLUME 9.4 fL (9.2-13.0); MONOCYTES 5.1 %; MONOCYTES ABSOLUTE 0.59 10/3/uL (0.21-1.20); NEUTROPHILS 88.9 %; NEUTROPHILS ABSOLUTE 10.39 10/3/uL (2.02-8.40); PLATELET COUNT 337 10/3/uL (150-400); RBC DISTRIBUTION WIDTH 17.4 % (12.0-16.0); RED CELL COUNT 3.55 10/6/uL (4.0-5.6); WHITE BLOOD CELLS 11.7 10/3/uL (4.5-10.5)
[2016-05-23 05:18] LABS: MANUAL DIFF NO %
[2016-05-23 05:36] LABS: BUN (BLOOD UREA NITROGEN) 20 MG/DL (6-23); CALCIUM, SERUM 8.1 MG/DL (8.5-10.4); CHLORIDE, SERUM 101 MMOL/L (96-112); CO2 (CARBON DIOXIDE) 26 MMOL/L (24-34); CREATININE 0.92 MG/DL (0.55-1.02); GFR AFRICAN AMERICAN 75 ML/MIN (>=60); GFR NON AFRICAN AMERICAN 65 ML/MIN (>=60); GLUCOSE, SERUM 289 MG/DL (60-99); SODIUM, SERUM 135 MMOL/L (135-148)
[2016-05-23 05:37] LABS: POTASSIUM, SERUM 5.4 MMOL/L (3.5-5.3)
[2016-05-24 06:55] LABS: BASOPHILS 0.3 %; BASOPHILS ABSOLUTE 0.03 10/3/uL (0.0-0.16); EOSINOPHILS 1.4 %; EOSINOPHILS ABSOLUTE 0.13 10/3/uL (0.0-0.53); HEMATOCRIT 33.3 % (36.0-48.0); HEMOGLOBIN 10.2 g/dL (12.0-16.0); IMMATURE GRANULOCYTES 0.2 %; IMMATURE GRANULOCYTES ABSOLUTE 0.02 10/3/uL (0.0-0.11); LYMPHOCYTES ABSOLUTE 1.03 10/3/uL (0.67-4.30); MANUAL DIFF NO %; MEAN CORPUS HGB CONC 30.6 g/dL (32.0-36.0); MEAN CORPUSCULAR HEMOGLOB 27.4 pg (26.0-34.0); MEAN CORPUSCULAR VOLUME 89.5 fL (80-100); MEAN PLATELET VOLUME 9.3 fL (9.2-13.0); MONOCYTES ABSOLUTE 0.75 10/3/uL (0.21-1.20); NEUTROPHILS 79.1 %; NEUTROPHILS ABSOLUTE 7.39 10/3/uL (2.02-8.40); PLATELET COUNT 344 10/3/uL (150-400); RBC DISTRIBUTION WIDTH 17.3 % (12.0-16.0); RED CELL COUNT 3.72 10/6/uL (4.0-5.6); WHITE BLOOD CELLS 9.4 10/3/uL (4.5-10.5)
[2016-05-24 07:03] LABS: BUN (BLOOD UREA NITROGEN) 19 MG/DL (6-23); CALCIUM, SERUM 8.6 MG/DL (8.5-10.4); CHLORIDE, SERUM 99 MMOL/L (96-112); CO2 (CARBON DIOXIDE) 30 MMOL/L (24-34); CREATININE 0.96 MG/DL (0.55-1.02); GFR AFRICAN AMERICAN 71 ML/MIN (>=60); GFR NON AFRICAN AMERICAN 62 ML/MIN (>=60); GLUCOSE, SERUM 193 MG/DL (60-99); POTASSIUM, SERUM 5.4 MMOL/L (3.5-5.3); SODIUM, SERUM 134 MMOL/L (135-148)
[2016-05-24 08:43] LABS: CREAT SERUM (NOT ORDER) 0.96 MG/DL (0.53-1.43)
[2016-05-24 11:33] LABS: A/G 0.66 RATIO (0.9-2.10); ALB RELATIVE % 39.8 % (60.0-89.0); ALBUMIN (ELECTRO) 2.19 GM/DL (3.2-5.5); ALPHA 1 (ELECTRO) 0.39 GM/DL (0.1-0.4); ALPHA 2 (ELECTRO) 1.07 GM/DL (0.5-1.10); ALPHA 2 RELAT % 19.5 % (4.5-26.0); BETA GLOBULIN (SPE) 0.82 GM/DL (0.60-1.30); BETA RELATIVE % 14.9 % (9.0-22.0); GAMMA GLOBULIN (SPE) 1.03 G/DL (0.70-1.60); GAMMA RELAT % 18.8 % (6.0-22.0)
[2016-05-24 12:15] LABS: # HR UR COLLECT (NOT ORD) 12; T.V. 12HR URINE (NOT ORD) 550 ML (300-800); URINE TOTAL VOL (NOT ORD) 550 ML
[2016-05-24 12:27] LABS: CREAT CLEAR (NOT ORDER) 46.2 ML/MIN (75-115); CREATININE, URINE 58.1 MG/DL; T.P. 12HR UR (NOT ORDER) 356 MG/12HR (20-75); T.P. URINE (NOT ORDER RAN 64.8 MG/DL; URINE CREAT 0.31 G/T VOL (0.6-2.8)
[2016-05-25 06:23] LABS: BASOPHILS 0.5 %; BASOPHILS ABSOLUTE 0.04 10/3/uL (0.0-0.16); EOSINOPHILS 1.1 %; EOSINOPHILS ABSOLUTE 0.08 10/3/uL (0.0-0.53); HEMATOCRIT 31.3 % (36.0-48.0); HEMOGLOBIN 9.6 g/dL (12.0-16.0); IMMATURE GRANULOCYTES 0.3 %; IMMATURE GRANULOCYTES ABSOLUTE 0.02 10/3/uL (0.0-0.11); LYMPHOCYTES 12.6 %; LYMPHOCYTES ABSOLUTE 0.96 10/3/uL (0.67-4.30); MEAN CORPUS HGB CONC 30.7 g/dL (32.0-36.0); MEAN CORPUSCULAR HEMOGLOB 27.3 pg (26.0-34.0); MEAN CORPUSCULAR VOLUME 88.9 fL (80-100); MEAN PLATELET VOLUME 9.4 fL (9.2-13.0); MONOCYTES 7.1 %; MONOCYTES ABSOLUTE 0.54 10/3/uL (0.21-1.20); NEUTROPHILS 78.4 %; NEUTROPHILS ABSOLUTE 5.95 10/3/uL (2.02-8.40); PLATELET COUNT 302 10/3/uL (150-400); RBC DISTRIBUTION WIDTH 17.3 % (12.0-16.0); RED CELL COUNT 3.52 10/6/uL (4.0-5.6); WHITE BLOOD CELLS 7.6 10/3/uL (4.5-10.5)
[2016-05-25 06:25] LABS: MANUAL DIFF NO %
[2016-05-25 06:38] LABS: BUN (BLOOD UREA NITROGEN) 20 MG/DL (6-23); CALCIUM, SERUM 8.5 MG/DL (8.5-10.4); CHLORIDE, SERUM 99 MMOL/L (96-112); CO2 (CARBON DIOXIDE) 29 MMOL/L (24-34); CREATININE 0.75 MG/DL (0.55-1.02); GFR AFRICAN AMERICAN 96 ML/MIN (>=60); GFR NON AFRICAN AMERICAN 83 ML/MIN (>=60); PHOSPHORUS, SERUM 2.9 MG/DL (2.5-4.5); POTASSIUM, SERUM 4.9 MMOL/L (3.5-5.3); SODIUM, SERUM 137 MMOL/L (135-148)
[2016-05-25 06:39] LABS: GLUCOSE, SERUM 142 MG/DL (60-99)
[2016-05-25 12:45] LABS: IMMUNOGLOBULIN D 6.8 mg/dL (<15.4)
[2016-05-26 05:17] LABS: BASOPHILS 0.5 %; BASOPHILS ABSOLUTE 0.04 10/3/uL (0.0-0.16); EOSINOPHILS 0.9 %; EOSINOPHILS ABSOLUTE 0.08 10/3/uL (0.0-0.53); HEMATOCRIT 32.2 % (36.0-48.0); HEMOGLOBIN 9.7 g/dL (12.0-16.0); IMMATURE GRANULOCYTES 0.2 %; IMMATURE GRANULOCYTES ABSOLUTE 0.02 10/3/uL (0.0-0.11); LYMPHOCYTES 8.6 %; LYMPHOCYTES ABSOLUTE 0.74 10/3/uL (0.67-4.30); MEAN CORPUS HGB CONC 30.1 g/dL (32.0-36.0); MEAN CORPUSCULAR HEMOGLOB 26.7 pg (26.0-34.0); MEAN CORPUSCULAR VOLUME 88.7 fL (80-100); MEAN PLATELET VOLUME 9.7 fL (9.2-13.0); MONOCYTES 7.7 %; MONOCYTES ABSOLUTE 0.66 10/3/uL (0.21-1.20); NEUTROPHILS 82.1 %; NEUTROPHILS ABSOLUTE 7.04 10/3/uL (2.02-8.40); PLATELET COUNT 319 10/3/uL (150-400); RBC DISTRIBUTION WIDTH 17.5 % (12.0-16.0); RED CELL COUNT 3.63 10/6/uL (4.0-5.6); WHITE BLOOD CELLS 8.6 10/3/uL (4.5-10.5)
[2016-05-26 05:22] LABS: MANUAL DIFF NO %
[2016-05-26 06:49] LABS: A/G RATIO 0.5 (0.7-1.9); ALBUMIN 1.8 G/DL (3.5-5.0); ALKALINE PHOSPHATASE 80 U/L (45-117); BUN (BLOOD UREA NITROGEN) 19 MG/DL (6-23); CALCIUM, SERUM 8.5 MG/DL (8.5-10.4); CHLORIDE, SERUM 100 MMOL/L (96-112); CO2 (CARBON DIOXIDE) 29 MMOL/L (24-34); CREATININE 0.74 MG/DL (0.55-1.02); GFR AFRICAN AMERICAN 98 ML/MIN (>=60); GFR NON AFRICAN AMERICAN 84 ML/MIN (>=60); GLOBULIN 3.9 G/DL (2.5-4.1); GLUCOSE, SERUM 141 MG/DL (60-99); POTASSIUM, SERUM 4.6 MMOL/L (3.5-5.3); SGOT(AST) 13 U/L (5-40); SGPT(ALT) 16 U/L (5-65); SODIUM, SERUM 136 MMOL/L (135-148); TOTAL BILIRUBIN 0.4 MG/DL (0-1.2); TOTAL PROTEIN 5.7 G/DL (6.0-8.5)
[2016-05-26] MEDS ORDERED: COREG6 PO (11:30)
[2016-05-26] MEDS ORDERED: MIRALAX POWDER1 PKT PO (11:31)
[2016-05-26] MEDS ORDERED: NORCO1 TAB PO (11:38)
[2016-05-26] MEDS ORDERED: ANOROELLIPTA INH (11:38)
== END 2016-05-26 12:41 | disposition home or self-care (01) | DRG 853 ==
LOC: ER 15:40 → 6NO 18:28 → SDC/OF 05-22 08:47 → 5NO 05-22 14:04
PROVIDERS: Emergency Medicine; Internal Medicine; Nurse Practitioner Acute Care; Physician Assistant Medical; Student in an Organized Health Care Education/Training Program; Thoracic Surgery (Cardiothoracic Vascular Surgery)
DX: A41.9 Sepsis, unspecified organism (principal); J96.01 Acute respiratory failure with hypoxia; J15.4 Pneumonia due to other streptococci; E11.22 Type 2 diabetes mellitus with diabetic chronic kidney disease; J91.8 Pleural effusion in other conditions classified elsewhere; J44.0 Chronic obstructive pulmonary disease with (acute) lower respiratory infection; D62 Acute posthemorrhagic anemia; Z99.81 Dependence on supplemental oxygen; J44.1 Chronic obstructive pulmonary disease with (acute) exacerbation; N18.3 Chronic kidney disease, stage 3 (moderate); I34.0 Nonrheumatic mitral (valve) insufficiency; I73.9 Peripheral vascular disease, unspecified; F41.1 Generalized anxiety disorder; G62.9 Polyneuropathy, unspecified; Z79.01 Long term (current) use of anticoagulants; I48.2 Chronic atrial fibrillation; Z90.49 Acquired absence of other specified parts of digestive tract; Z96.651 Presence of right artificial knee joint; Z90.710 Acquired absence of both cervix and uterus; Z79.84 Long term (current) use of oral hypoglycemic drugs; E66.9 Obesity, unspecified; Z68.27 Body mass index [BMI] 27.0-27.9, adult; Z87.891 Personal history of nicotine dependence; Z95.820 Peripheral vascular angioplasty status with implants and grafts
CPT/HCPCS: 36415; 71020; 71250; 80048; 80053; 80202; 81001; 81050; 82140; 82272; 82533; 82550; 82570; 82575; 82784; 82785; 82962; 83605; 83615; 83735; 83880; 84100; 84132; 84145; 84155; 84156; 84165; 84300; 84436; 84443; 84484; 85025; 86140; 86335; 86850; 86900; 86901; 86920; 87015; 87040; 87070; 87075; 87086; 87102; 87116; 87205; 87449; 93005; 94002; 94640; 94667; 94668; 96365; 97110-GP; 97116-GP; 97161-GP; 97530-GP; 99285; A9270-GY; G8978-CK-GP; G8979-CJ-GP; J0692; J1170; J1450; J1885; J1940; J2250; J2370; J2405; J2710; J2795; J3010; J3370; P9016

== ENCOUNTER 2016-08-01 19:16 | Inpatient (IN) | payer MEDICARE, OTHER ==
--- NOTE | ~2016-08-01 | IDS ---
Interim Discharge Summary [facility] [address] [place]. [address] NAME: SHANTE CAPELLAN : 50 STATUS : ADM IN [facility]#: [id number] AGE: 66 ADM/REG DATE : 08/01/16 MR#: [id number] REPORT SERV DATE: 08/05/16 DICTATED BY: HUYEN PHOENIX IV DATE: 08/05/16 REPORT STATUS : Draft TRANSCRIBED BY: ISABELA DATE: 08/05/16 ADMISSION DATE: 08/01/2016 DISCHARGE DATE: DATE OF TRANSFER TO THE FLOOR: 08/04/2016 ADMITTING DIAGNOSES: 1. Acute on chronic hypercapnic respiratory failure. 2. Acute on chronic diastolic heart failure. 3. Chronic obstructive pulmonary disease exacerbation. 4. Presumed respiratory infection, completing antibiotics. 5. Chronic atrial fibrillation. 6. Recently treated complicated parapneumonic effusion with thoracoscopy. 7. Diabetes mellitus, hyperglycemia. 8. Recent small-bowel obstruction, status post laparotomy. CONSULTANTS: None. PROCEDURES: The patient had an intubation performed in the emergency room. MEDICATIONS: Aspirin 81 mg daily, Coreg 6.25 mg twice a day, prednisone 40 mg to be completed tomorrow, Dulera two puffs twice a day, Spiriva one capsule daily, DuoNeb q.4 hours while awake and q.2 hours as needed, Eliquis 5 mg twice a day, folic acid 1 mg daily, Levaquin 750 mg to be completed tonight, thiamine 200 mg daily, digoxin 0.125 mg daily, Levemir 10 units twice a day, Mag-Ox 1200 mg daily, Neurontin 100 mg q.6 hours, level 3 insulin sliding scale, level 2 insulin sliding scale, Protonix 40 mg daily, Spiriva one capsule daily, and vitamin B12 daily. HOSPITAL COURSE: The patient was admitted from the emergency room on the 08/01/2016 after presenting with several days of increasing shortness of breath. She had marked significantly increased peripheral edema with an elevated BNP. She refused BiPAP, so was quickly intubated. She remained on mechanical ventilator through the that was successfully weaned and extubated. She was treated the COPD exacerbation with steroids and bronchodilator medications. She had radiographic evidence for pulmonary edema for which she was diuresed and required some Diamox for associated alkalemia. She clinically markedly improved with decreased peripheral edema. Initially, her Coreg was held that was restarted, and she tolerated this well. She was empirically treated with Levaquin, tracheal aspirate demonstrated no organisms and the procalcitonin level was not high. The patient was initiated on daily diuretic therapy which I would continue as an outpatient. She would be an excellent candidate for outpatient pulmonary rehabilitation. She did have low potassium and has had replacement, they will need to be followed. It was felt that she was stable for transfer to the floor. We will ask hospitalist to assume primary care. NM/MODL Interim Discharge Summary [facility] [id number] [facility] [place]. [address] NAME: SHANTE CAPELLAN : 50 STATUS : ADM IN PAT#: [id number] AGE: 66 ADM/REG DATE : 08/01/16 MR#: [id number] REPORT SERV DATE: 08/05/16 DICTATED BY: HUYEN PHOENIX IV DATE: 08/05/16 REPORT STATUS : Draft TRANSCRIBED BY: ISABELA DATE: 08/05/16 Huyen Phoenix IV, M.D. / [id number] CC: Augusto Hennessy MD
--- NOTE | ~2016-08-01 | HP ---
History And Physical [facility] [address] [place]. [address] NAME: SHANTE CAPELLAN : 50 STATUS : ADM IN [facility]#: [id number] AGE: 66 ADM/REG DATE : 08/01/16 MR#: [id number] REPORT SERV DATE: 08/02/16 DICTATED BY: JEREMY HODGE DATE: 08/01/16 REPORT STATUS : Draft TRANSCRIBED BY: MODL DATE: 08/01/16 DATE OF ADMISSION: 08/01/2016 REASON FOR ADMISSION: Acute on chronic respiratory failure requiring intubation and mechanical ventilation and acute exacerbation of chronic obstructive pulmonary disease and fluid overload. HISTORY OF PRESENT ILLNESS: Ms. Herring is an unfortunate 66-year-old woman with multiple medical problems, most significant for COPD, on oxygen at home; atrial fibrillation, on chronic anticoagulation; valvular heart disease and recent pneumonia; who actually had been in the hospital back in April because of a complicated right parapneumonic effusion. She underwent bronchoscopy and thoracoscopy with complete decortication at time and did fairly well. She came into the emergency department this time because of worsening dyspnea. She was still alert when she came in, but had progressively worsening work of breathing. Stated she could not tolerate BiPAP and had to be intubated. Following intubation and stabilization, she seems to have settled, her oxygenation is improved and her blood pressure has stabilized as well. She was initially hypertensive and now she is normotensive. PAST MEDICAL HISTORY: Significant for COPD, atrial fibrillation, hypertension, diastolic cardiac dysfunction, recent decortication, acid reflux, hypercholesterolemia, diabetes. FAMILY HISTORY: Significant for asthma. SOCIAL HISTORY: Significant for 1-2 pack a day smoking for about 40 years with documentation of recent smoke cessation on the lead up to her severe pneumonia and decortication back in April. REVIEW OF SYSTEMS: Review of 10 systems could not be obtained from the patient since she was already intubated by the time I saw her, but was discussed with the emergency department staff and positive for what was noted above. PHYSICAL EXAMINATION: GENERAL: She is chronically ill-appearing, on mechanical ventilation. HEENT: Normocephalic, atraumatic. NECK: Supple. No lymphadenopathy. No JVD. CHEST: Symmetric with good expansion bilaterally. LUNGS: Have distant breath sounds with prolonged expiratory phase. CARDIOVASCULAR: She has S1 and S2, which are regular in rate and rhythm. ABDOMEN: Benign. EXTREMITIES: She has bilateral lower extremity edema, but no clubbing, no cyanosis. ASSESSMENT AND PLAN: 1. Respiratory failure. The patient has respiratory failure with acute exacerbation of chronic obstructive pulmonary disease and volume overload. She has mildly elevated BNP, significant hypercapnia on her ABG on arrival, though no obvious new infiltrates. History And Physical [address] [address] NAME: SHANTE CAPELLAN : 50 STATUS : ADM IN PAT#: [id number] AGE: 66 ADM/REG DATE : 08/01/16 MR#: [id number] REPORT SERV DATE: 08/02/16 DICTATED BY: JEREMY HODGE DATE: 08/01/16 REPORT STATUS : Draft TRANSCRIBED BY: ISABELA DATE: 08/01/16 We have started her on systemic steroids and antibiotics for treatment of acute exacerbation of chronic obstructive pulmonary disease and aggressive bronchodilator therapy. 2. She has some volume overload with her cor pulmonale and diastolic dysfunction though her rhythm is stable, so we have given her extra IV diuretics. 3. She will be on DVT prophylaxis, as she will be maintained on her apixaban therapy and we will monitor her blood sugar as well. LÁZARO/ISABELA Jeremy Hodge M.D. / [id number] CC: Jeremy Hodge M.D.
--- NOTE | ~2016-08-01 | DS ---
Discharge Summary [facility] [address] [place]. [address] NAME: SHANTE CAPELLAN : 50 STATUS : DIS IN PAT#: [id number] AGE: 66 ADM/REG DATE : 08/01/16 MR#: [id number] REPORT SERV DATE: 08/10/16 DICTATED BY: AUGUSTO BOUDREAUX DATE: 08/09/16 REPORT STATUS : Draft TRANSCRIBED BY: ISABELA DATE: 08/09/16 ADMISSION DATE: 08/01/2016 DISCHARGE DATE: 08/09/2016 DISCHARGE DIAGNOSES: 1. [id number] hypoxic respiratory failure, acute decompensated heart failure with preserved ejection fraction of 50%, chronic atrial fibrillation. 2. Diabetes mellitus. 3. Coronary artery disease. 4. Anxiety disorder. 5. Normocytic anemia. 6. Chronic kidney disease, stage III. 7. Heart failure with preserved ejection fraction. DISCHARGE CONDITION: Stable. CONSULTATION: None. HISTORY OF PRESENT ILLNESS: For detailed HPI, please make reference to Dr. Julius Park's dictation on 08/01/2016. In brief, this is a 66-year-old female with medical history of COPD, on home O2 at home; atrial fibrillation, on chronic anticoagulation; valvular heart disease; recent history of pneumonia, who presented to the hospital with worsening shortness of breath with features suggestive of fluid overload. In the ER, she was found to have physical exam noted for distant breath sounds with prolonged expiratory wheezes and was diagnosed with respiratory failure due to COPD exacerbation and fluid overload. The patient was subsequently intubated in the ER and transferred to the ICU. For detailed hospital course in the ICU, please make reference to Dr. Kenneth Phoenix's dictation on 08/04/2016. It was noted that in the ICU, the patient received IV methylprednisone, also received IV diuresis and levofloxacin. Tracheal aspirate demonstrated no organisms. Procalcitonin level was within normal limits. Subsequently, the patient was weaned and successfully liberated from the vent and transferred to the medical floor. While on the medical floor, the patient's oxygen requirement continued to reduce. At the time of discharge, the patient was back to her baseline of requiring home O2 only as needed. Physical Therapy evaluated the patient and recommended the patient to be discharged to acute rehab. The patient was accepted at and was subsequently discharged. DISCHARGE MEDICATIONS: 1. Apixaban 5 mg p.o. b.i.d. 2. Aspirin 81 mg p.o. daily. 3. Lipitor 40 mg p.o. daily. 4. Lasix 40 mg p.o. b.i.d. 5. Coreg 6.25 mg p.o. b.i.d. 6. Digoxin 0.125 mg p.o. daily. 7. Folic acid one p.o. daily. Discharge Summary [address] [address] NAME: SHANTE CAPELLAN : 50 STATUS : DIS IN PAT#: [id number] AGE: 66 ADM/REG DATE : 08/01/16 MR#: [id number] REPORT SERV DATE: 08/10/16 DICTATED BY: AUGUSTO BOUDREAUX DATE: 08/09/16 REPORT STATUS : Draft TRANSCRIBED BY: ISABELA DATE: 08/09/16 8. Multivitamins one p.o. daily. 9. Spiriva two puffs inhaler daily. 10.Protonix 40 mg daily. 11.Xanax 1 mg t.i.d. 12.Sitagliptin/metformin 50 mg/1000 mg p.o. b.i.d. 13.MiraLax p.r.n. 14.Hydrocodone 10/325 one p.o. b.i.d. 15.DuoNeb p.r.n. DISCHARGE ACTIVITY: As tolerated. Greater than 35 minutes was used to prepare this patient's discharge, reconcile medication, and advised the patient on discharge plans and followup. DICTATED BY: MD DELON Manley/ISABELA Augusto Boudreaux MD / [id number] CC: MD Martinez Manley M.D.
[~2016-08-01 19:16] MED LIST changes: +ANOROELLIPTA INH; +COREG6 PO; +MIRALAX POWDER1 PKT PO
[2016-08-01 19:47] LABS: BASOPHILS 0.3 %; BASOPHILS ABSOLUTE 0.03 10/3/uL (0.0-0.16); EOSINOPHILS 0.1 %; EOSINOPHILS ABSOLUTE 0.01 10/3/uL (0.0-0.53); ER CBC TAT 0 Hrs 09 Mins; HEMATOCRIT 30.5 % (36.0-48.0); IMMATURE GRANULOCYTES 0.4 %; IMMATURE GRANULOCYTES ABSOLUTE 0.05 10/3/uL (0.0-0.11); LYMPHOCYTES 2.3 %; LYMPHOCYTES ABSOLUTE 0.26 10/3/uL (0.67-4.30); MANUAL DIFF NO %; MEAN CORPUS HGB CONC 29.5 g/dL (32.0-36.0); MEAN CORPUSCULAR HEMOGLOB 29.2 pg (26.0-34.0); MEAN PLATELET VOLUME 10.4 fL (9.2-13.0); MONOCYTES 1.2 %; MONOCYTES ABSOLUTE 0.14 10/3/uL (0.21-1.20); NEUTROPHILS 95.7 %; NEUTROPHILS ABSOLUTE 10.84 10/3/uL (2.02-8.40); PLATELET COUNT 245 10/3/uL (150-400); RBC DISTRIBUTION WIDTH 18.3 % (12.0-16.0); RED CELL COUNT 3.08 10/6/uL (4.0-5.6); WHITE BLOOD CELLS 11.3 10/3/uL (4.5-10.5)
[2016-08-01 19:50] LABS: INTERNATIONAL NORMAL RATI 1.3 UNITS (-); PARTIAL THROMBO TIME 25.6 SEC (22.5-37.2)
[2016-08-01 19:50] LABS: BE (BASE EXCESS) 7.8 MEQ/L (0 +/- 2.5); CARBOXYHEMOGLOBIN 1.6 % (0-3); HCO3 (ACTUAL BICARBONATE) 36.1 MEQ/L (23-27); HEMOBLOGIN CONTENT 9.9 G/DL (12-16); INSTRUMENT SERIAL # 8087; METHEMOGLOBIN 0.3 % (0-3); O2 CONTENT 12.4 VOL% (18-24); PCO2 (CO2 TENSION) 75 MMHG (35-45); PO2 (O2 TENSION) 67 MMHG (79-93); SAMPLE Arterial
[2016-08-01 19:51] LABS: ALLENS TEST Pos; DEVICE NC
[2016-08-01 20:00] LABS: CALCIUM, SERUM 9.4 MG/DL (8.5-10.4); CHEST PAIN PROFILE TAT 0 Hrs 22 Mins; CHLORIDE, SERUM 97 MMOL/L (96-112); CO2 (CARBON DIOXIDE) 36 MMOL/L (24-34); CREATININE 0.79 MG/DL (0.55-1.02); GFR AFRICAN AMERICAN 90 ML/MIN (>=60); GFR NON AFRICAN AMERICAN 78 ML/MIN (>=60); SODIUM, SERUM 141 MMOL/L (135-148); TROPONIN I 0.03 NG/ML (<0.05)
[2016-08-01 20:02] LABS: BUN (BLOOD UREA NITROGEN) 19 MG/DL (6-23); GLUCOSE, SERUM 174 MG/DL (60-99); POTASSIUM, SERUM 5.1 MMOL/L (3.5-5.3)
[2016-08-01] MEDS ORDERED: ZOFRAN4 PO (21:21)
[2016-08-01] MEDS ORDERED: DUONEB INH (21:21)
[2016-08-01] MEDS ORDERED: NEUR100 PO (21:21)
[2016-08-01] MEDS ORDERED: LAN125 PO (21:22)
[2016-08-01] MEDS ORDERED: L40 PO (21:23)
[2016-08-01] MEDS ORDERED: SPIRIVA RESPIMAT INH (21:27)
[2016-08-01] MEDS ORDERED: MAGOX4 PO ×2 (21:27)
[2016-08-01] MEDS ORDERED: B121000P IM (21:27)
[2016-08-01] MEDS ORDERED: MOBIC7.5 PO (21:27)
[2016-08-01] MEDS ORDERED: GLUCOPHAGE1000 MG PO (21:27)
[2016-08-02 04:00] LABS: CARBOXYHEMOGLOBIN 0.2 % (0-3); HCO3 (ACTUAL BICARBONATE) 35.9 MEQ/L (23-27); HEMOBLOGIN CONTENT 9.4 G/DL (12-16); INSTRUMENT SERIAL # 11843; METHEMOGLOBIN 0.6 % (0-3); O2 CONTENT 13.1 VOL% (18-24); PCO2 (CO2 TENSION) 44 MMHG (35-45); PO2 (O2 TENSION) 121 MMHG (79-93); pH 7.53 (7.37-7.43)
[2016-08-02 04:01] LABS: ALLENS TEST Pos; MODE CMV; OPERATOR ID 32193; SAMPLE Arterial; TIDAL VOLUME 500 ML
[2016-08-02 05:35] LABS: BASOPHILS 0.1 %; BASOPHILS ABSOLUTE 0.01 10/3/uL (0.0-0.16); EOSINOPHILS 0 %; HEMATOCRIT 29.2 % (36.0-48.0); HEMOGLOBIN 8.7 g/dL (12.0-16.0); IMMATURE GRANULOCYTES 0.1 %; IMMATURE GRANULOCYTES ABSOLUTE 0.01 10/3/uL (0.0-0.11); LYMPHOCYTES 4.5 %; LYMPHOCYTES ABSOLUTE 0.38 10/3/uL (0.67-4.30); MEAN CORPUS HGB CONC 29.8 g/dL (32.0-36.0); MEAN CORPUSCULAR HEMOGLOB 28.8 pg (26.0-34.0); MEAN CORPUSCULAR VOLUME 96.7 fL (80-100); MEAN PLATELET VOLUME 10.6 fL (9.2-13.0); MONOCYTES 2.6 %; MONOCYTES ABSOLUTE 0.22 10/3/uL (0.21-1.20); NEUTROPHILS 92.7 %; NEUTROPHILS ABSOLUTE 7.81 10/3/uL (2.02-8.40); PLATELET COUNT 182 10/3/uL (150-400); RBC DISTRIBUTION WIDTH 17.6 % (12.0-16.0); RED CELL COUNT 3.02 10/6/uL (4.0-5.6); WHITE BLOOD CELLS 8.4 10/3/uL (4.5-10.5)
[2016-08-02 05:36] LABS: MANUAL DIFF NO %
[2016-08-02 05:39] LABS: BUN (BLOOD UREA NITROGEN) 20 MG/DL (6-23); CALCIUM, SERUM 9.2 MG/DL (8.5-10.4); CHLORIDE, SERUM 95 MMOL/L (96-112); CO2 (CARBON DIOXIDE) 34 MMOL/L (24-34); CREATININE 0.83 MG/DL (0.55-1.02); GFR AFRICAN AMERICAN 85 ML/MIN (>=60); GFR NON AFRICAN AMERICAN 73 ML/MIN (>=60); GLUCOSE, SERUM 201 MG/DL (60-99); POTASSIUM, SERUM 4.3 MMOL/L (3.5-5.3); SODIUM, SERUM 138 MMOL/L (135-148)
[2016-08-02 06:26] LABS: PROCALCITONIN 0.06 ng/mL (<0.5)
[2016-08-02 12:39] LABS: ALBUMIN 3.1 G/DL (3.5-5.0); DIGOXIN 0.8 NG/ML (0.8-2.0); DIRECT BILIRUBIN 0.4 MG/DL (0.0-0.4); SGPT(ALT) 12 U/L (5-65); TOTAL PROTEIN 6.8 G/DL (6.0-8.5)
[2016-08-02 12:40] LABS: ALKALINE PHOSPHATASE 89 U/L (45-117); INDIRECT BILIRUBIN(NOT ORDER) 0.8 MG/DL (0.1-0.9); TOTAL BILIRUBIN 1.2 MG/DL (0-1.2)
[2016-08-02 12:41] LABS: SGOT(AST) 26 U/L (5-40)
[2016-08-02 13:05] LABS: TOTAL BILIRUBIN 1.4 MG/DL (0-1.2); TOTAL PROTEIN 6.7 G/DL (6.0-8.5)
[2016-08-02 13:06] LABS: DIGOXIN 0.7 NG/ML (0.8-2.0); DIRECT BILIRUBIN 0.8 MG/DL (0.0-0.4); INDIRECT BILIRUBIN(NOT ORDER) 0.6 MG/DL (0.1-0.9)
[2016-08-03 03:48] LABS: BASOPHILS 0 %; EOSINOPHILS 0 %; HEMATOCRIT 30.7 % (36.0-48.0); HEMOGLOBIN 9.5 g/dL (12.0-16.0); IMMATURE GRANULOCYTES 0.2 %; IMMATURE GRANULOCYTES ABSOLUTE 0.03 10/3/uL (0.0-0.11); LYMPHOCYTES 2.8 %; MANUAL DIFF NO %; MEAN CORPUS HGB CONC 30.9 g/dL (32.0-36.0); MEAN CORPUSCULAR HEMOGLOB 29.6 pg (26.0-34.0); MEAN CORPUSCULAR VOLUME 95.6 fL (80-100); MEAN PLATELET VOLUME 10.1 fL (9.2-13.0); MONOCYTES 2.4 %; MONOCYTES ABSOLUTE 0.34 10/3/uL (0.21-1.20); NEUTROPHILS 94.6 %; NEUTROPHILS ABSOLUTE 13.31 10/3/uL (2.02-8.40); PLATELET COUNT 270 10/3/uL (150-400); RBC DISTRIBUTION WIDTH 18.5 % (12.0-16.0); RED CELL COUNT 3.21 10/6/uL (4.0-5.6); WHITE BLOOD CELLS 14.1 10/3/uL (4.5-10.5)
[2016-08-03 03:53] LABS: ALLENS TEST Pos; BE (BASE EXCESS) 9.3 MEQ/L (0 +/- 2.5); CARBOXYHEMOGLOBIN 0.3 % (0-3); HCO3 (ACTUAL BICARBONATE) 33.6 MEQ/L (23-27); HEMOBLOGIN CONTENT 9.7 G/DL (12-16); INSTRUMENT SERIAL # 11843; METHEMOGLOBIN 0.6 % (0-3); MODE CMV; O2 CONTENT 13.4 VOL% (18-24); OPERATOR ID 17370; PCO2 (CO2 TENSION) 45 MMHG (35-45); PO2 (O2 TENSION) 114 MMHG (79-93); SAMPLE Arterial; TIDAL VOLUME 500 ML; pH 7.49 (7.37-7.43)
[2016-08-03 04:04] LABS: A/G RATIO 0.8 (0.7-1.9); ALBUMIN 3.1 G/DL (3.5-5.0); ALKALINE PHOSPHATASE 88 U/L (45-117); BUN (BLOOD UREA NITROGEN) 22 MG/DL (6-23); CHLORIDE, SERUM 95 MMOL/L (96-112); CO2 (CARBON DIOXIDE) 33 MMOL/L (24-34); GFR AFRICAN AMERICAN 61 ML/MIN (>=60); GFR NON AFRICAN AMERICAN 52 ML/MIN (>=60); GLOBULIN 3.7 G/DL (2.5-4.1); GLUCOSE, SERUM 217 MG/DL (60-99); PHOSPHORUS, SERUM 3.5 MG/DL (2.5-4.5); POTASSIUM, SERUM 3.5 MMOL/L (3.5-5.3); SGOT(AST) 14 U/L (5-40); SGPT(ALT) 12 U/L (5-65); SODIUM, SERUM 138 MMOL/L (135-148); TOTAL BILIRUBIN 1.4 MG/DL (0-1.2); TOTAL PROTEIN 6.8 G/DL (6.0-8.5)
[2016-08-04 03:26] LABS: BASOPHILS 0.1 %; BASOPHILS ABSOLUTE 0.01 10/3/uL (0.0-0.16); EOSINOPHILS 0 %; HEMATOCRIT 29.2 % (36.0-48.0); HEMOGLOBIN 8.9 g/dL (12.0-16.0); IMMATURE GRANULOCYTES 0.4 %; IMMATURE GRANULOCYTES ABSOLUTE 0.05 10/3/uL (0.0-0.11); LYMPHOCYTES 1.9 %; LYMPHOCYTES ABSOLUTE 0.26 10/3/uL (0.67-4.30); MANUAL DIFF NO %; MEAN CORPUS HGB CONC 30.5 g/dL (32.0-36.0); MEAN CORPUSCULAR HEMOGLOB 29.1 pg (26.0-34.0); MEAN CORPUSCULAR VOLUME 95.4 fL (80-100); MEAN PLATELET VOLUME 9.8 fL (9.2-13.0); MONOCYTES 3.6 %; MONOCYTES ABSOLUTE 0.49 10/3/uL (0.21-1.20); NEUTROPHILS ABSOLUTE 12.88 10/3/uL (2.02-8.40); PLATELET COUNT 268 10/3/uL (150-400); RBC DISTRIBUTION WIDTH 18.5 % (12.0-16.0); RED CELL COUNT 3.06 10/6/uL (4.0-5.6); WHITE BLOOD CELLS 13.7 10/3/uL (4.5-10.5)
[2016-08-04 03:38] LABS: BUN (BLOOD UREA NITROGEN) 25 MG/DL (6-23); CHLORIDE, SERUM 101 MMOL/L (96-112); CO2 (CARBON DIOXIDE) 32 MMOL/L (24-34); CREATININE 1.28 MG/DL (0.55-1.02); GFR AFRICAN AMERICAN 50 ML/MIN (>=60); GFR NON AFRICAN AMERICAN 44 ML/MIN (>=60); PHOSPHORUS, SERUM 2.7 MG/DL (2.5-4.5); POTASSIUM, SERUM 3.7 MMOL/L (3.5-5.3); SODIUM, SERUM 137 MMOL/L (135-148)
[2016-08-04 03:39] LABS: GLUCOSE, SERUM 311 MG/DL (60-99)
[2016-08-05 03:51] LABS: BASOPHILS 0.1 %; BASOPHILS ABSOLUTE 0.01 10/3/uL (0.0-0.16); EOSINOPHILS 0 %; HEMATOCRIT 27.2 % (36.0-48.0); HEMOGLOBIN 8.5 g/dL (12.0-16.0); IMMATURE GRANULOCYTES 0.3 %; IMMATURE GRANULOCYTES ABSOLUTE 0.04 10/3/uL (0.0-0.11); LYMPHOCYTES 7.7 %; LYMPHOCYTES ABSOLUTE 0.89 10/3/uL (0.67-4.30); MEAN CORPUS HGB CONC 31.3 g/dL (32.0-36.0); MEAN CORPUSCULAR VOLUME 96.1 fL (80-100); MEAN PLATELET VOLUME 9.9 fL (9.2-13.0); MONOCYTES 6.9 %; MONOCYTES ABSOLUTE 0.79 10/3/uL (0.21-1.20); NEUTROPHILS ABSOLUTE 9.78 10/3/uL (2.02-8.40); PLATELET COUNT 239 10/3/uL (150-400); RED CELL COUNT 2.83 10/6/uL (4.0-5.6); WHITE BLOOD CELLS 11.5 10/3/uL (4.5-10.5)
[2016-08-05 03:55] LABS: MANUAL DIFF NO %
[2016-08-05 04:07] LABS: BUN (BLOOD UREA NITROGEN) 27 MG/DL (6-23); CALCIUM, SERUM 8.5 MG/DL (8.5-10.4); CHLORIDE, SERUM 106 MMOL/L (96-112); CO2 (CARBON DIOXIDE) 29 MMOL/L (24-34); CREATININE 0.94 MG/DL (0.55-1.02); GFR AFRICAN AMERICAN 73 ML/MIN (>=60); GFR NON AFRICAN AMERICAN 63 ML/MIN (>=60); PHOSPHORUS, SERUM 2.5 MG/DL (2.5-4.5); POTASSIUM, SERUM 3.4 MMOL/L (3.5-5.3); SODIUM, SERUM 139 MMOL/L (135-148)
[2016-08-05 04:09] LABS: GLUCOSE, SERUM 148 MG/DL (60-99)
[2016-08-06 06:59] LABS: BASOPHILS 0.1 %; BASOPHILS ABSOLUTE 0.01 10/3/uL (0.0-0.16); EOSINOPHILS 0.8 %; EOSINOPHILS ABSOLUTE 0.07 10/3/uL (0.0-0.53); HEMATOCRIT 29.6 % (36.0-48.0); HEMOGLOBIN 9.1 g/dL (12.0-16.0); IMMATURE GRANULOCYTES 0.3 %; IMMATURE GRANULOCYTES ABSOLUTE 0.03 10/3/uL (0.0-0.11); LYMPHOCYTES 14.7 %; LYMPHOCYTES ABSOLUTE 1.36 10/3/uL (0.67-4.30); MANUAL DIFF NO %; MEAN CORPUS HGB CONC 30.7 g/dL (32.0-36.0); MEAN CORPUSCULAR HEMOGLOB 29.2 pg (26.0-34.0); MEAN CORPUSCULAR VOLUME 94.9 fL (80-100); MEAN PLATELET VOLUME 9.8 fL (9.2-13.0); MONOCYTES 7.5 %; NEUTROPHILS 76.6 %; NEUTROPHILS ABSOLUTE 7.11 10/3/uL (2.02-8.40); PLATELET COUNT 283 10/3/uL (150-400); RBC DISTRIBUTION WIDTH 17.8 % (12.0-16.0); RED CELL COUNT 3.12 10/6/uL (4.0-5.6); WHITE BLOOD CELLS 9.3 10/3/uL (4.5-10.5)
[2016-08-06 07:13] LABS: BUN (BLOOD UREA NITROGEN) 28 MG/DL (6-23); CHLORIDE, SERUM 107 MMOL/L (96-112); CO2 (CARBON DIOXIDE) 28 MMOL/L (24-34); CREATININE 0.85 MG/DL (0.55-1.02); GFR AFRICAN AMERICAN 83 ML/MIN (>=60); GFR NON AFRICAN AMERICAN 71 ML/MIN (>=60); PHOSPHORUS, SERUM 2.2 MG/DL (2.5-4.5); SODIUM, SERUM 142 MMOL/L (135-148)
[2016-08-06 07:14] LABS: GLUCOSE, SERUM 77 MG/DL (60-99)
[2016-08-07 04:26] LABS: BASOPHILS 0 %; EOSINOPHILS 0.9 %; EOSINOPHILS ABSOLUTE 0.09 10/3/uL (0.0-0.53); HEMOGLOBIN 9.5 g/dL (12.0-16.0); IMMATURE GRANULOCYTES 0.4 %; IMMATURE GRANULOCYTES ABSOLUTE 0.04 10/3/uL (0.0-0.11); LYMPHOCYTES 10.3 %; LYMPHOCYTES ABSOLUTE 1.04 10/3/uL (0.67-4.30); MEAN CORPUS HGB CONC 31.7 g/dL (32.0-36.0); MEAN CORPUSCULAR HEMOGLOB 29.2 pg (26.0-34.0); MEAN CORPUSCULAR VOLUME 92.3 fL (80-100); MEAN PLATELET VOLUME 9.8 fL (9.2-13.0); MONOCYTES 8.7 %; MONOCYTES ABSOLUTE 0.88 10/3/uL (0.21-1.20); NEUTROPHILS 79.7 %; NEUTROPHILS ABSOLUTE 8.06 10/3/uL (2.02-8.40); PLATELET COUNT 310 10/3/uL (150-400); RBC DISTRIBUTION WIDTH 17.5 % (12.0-16.0); RED CELL COUNT 3.25 10/6/uL (4.0-5.6); WHITE BLOOD CELLS 10.1 10/3/uL (4.5-10.5)
[2016-08-07 04:36] LABS: BUN (BLOOD UREA NITROGEN) 29 MG/DL (6-23); CALCIUM, SERUM 8.7 MG/DL (8.5-10.4); CHLORIDE, SERUM 103 MMOL/L (96-112); CO2 (CARBON DIOXIDE) 30 MMOL/L (24-34); CREATININE 0.97 MG/DL (0.55-1.02); GFR AFRICAN AMERICAN 71 ML/MIN (>=60); GFR NON AFRICAN AMERICAN 61 ML/MIN (>=60); PHOSPHORUS, SERUM 2.8 MG/DL (2.5-4.5); POTASSIUM, SERUM 3.8 MMOL/L (3.5-5.3); SODIUM, SERUM 141 MMOL/L (135-148)
[2016-08-07 04:37] LABS: GLUCOSE, SERUM 157 MG/DL (60-99)
[2016-08-07 04:42] LABS: MANUAL DIFF NO %
[2016-08-08 05:34] LABS: BASOPHILS 0.1 %; BASOPHILS ABSOLUTE 0.01 10/3/uL (0.0-0.16); EOSINOPHILS 2.5 %; EOSINOPHILS ABSOLUTE 0.27 10/3/uL (0.0-0.53); HEMOGLOBIN 10.5 g/dL (12.0-16.0); IMMATURE GRANULOCYTES 0.4 %; IMMATURE GRANULOCYTES ABSOLUTE 0.04 10/3/uL (0.0-0.11); LYMPHOCYTES 13.5 %; LYMPHOCYTES ABSOLUTE 1.45 10/3/uL (0.67-4.30); MEAN CORPUS HGB CONC 31.7 g/dL (32.0-36.0); MEAN CORPUSCULAR HEMOGLOB 29.2 pg (26.0-34.0); MEAN CORPUSCULAR VOLUME 91.9 fL (80-100); MEAN PLATELET VOLUME 9.8 fL (9.2-13.0); MONOCYTES ABSOLUTE 0.75 10/3/uL (0.21-1.20); NEUTROPHILS 76.5 %; NEUTROPHILS ABSOLUTE 8.23 10/3/uL (2.02-8.40); PLATELET COUNT 391 10/3/uL (150-400); RBC DISTRIBUTION WIDTH 17.6 % (12.0-16.0); WHITE BLOOD CELLS 10.8 10/3/uL (4.5-10.5)
[2016-08-08 05:35] LABS: HEMATOCRIT 33.1 % (36.0-48.0); MANUAL DIFF NO %
[2016-08-08 05:53] LABS: CALCIUM, SERUM 8.5 MG/DL (8.5-10.4); CHLORIDE, SERUM 100 MMOL/L (96-112); CO2 (CARBON DIOXIDE) 31 MMOL/L (24-34); CREATININE 0.94 MG/DL (0.55-1.02); GFR AFRICAN AMERICAN 73 ML/MIN (>=60); GFR NON AFRICAN AMERICAN 63 ML/MIN (>=60); GLUCOSE, SERUM 155 MG/DL (60-99); POTASSIUM, SERUM 3.7 MMOL/L (3.5-5.3); SODIUM, SERUM 136 MMOL/L (135-148)
[2016-08-08 06:00] LABS: BUN (BLOOD UREA NITROGEN) 23 MG/DL (6-23); PHOSPHORUS, SERUM 3.8 MG/DL (2.5-4.5)
[2016-08-09 05:52] LABS: BASOPHILS 0.1 %; BASOPHILS ABSOLUTE 0.01 10/3/uL (0.0-0.16); EOSINOPHILS 2.2 %; EOSINOPHILS ABSOLUTE 0.23 10/3/uL (0.0-0.53); HEMATOCRIT 31.4 % (36.0-48.0); HEMOGLOBIN 9.8 g/dL (12.0-16.0); IMMATURE GRANULOCYTES 0.3 %; IMMATURE GRANULOCYTES ABSOLUTE 0.03 10/3/uL (0.0-0.11); LYMPHOCYTES 12.3 %; LYMPHOCYTES ABSOLUTE 1.27 10/3/uL (0.67-4.30); MEAN CORPUS HGB CONC 31.2 g/dL (32.0-36.0); MEAN CORPUSCULAR HEMOGLOB 28.5 pg (26.0-34.0); MEAN CORPUSCULAR VOLUME 91.3 fL (80-100); MEAN PLATELET VOLUME 9.5 fL (9.2-13.0); MONOCYTES 6.7 %; MONOCYTES ABSOLUTE 0.69 10/3/uL (0.21-1.20); NEUTROPHILS 78.4 %; NEUTROPHILS ABSOLUTE 8.09 10/3/uL (2.02-8.40); PLATELET COUNT 318 10/3/uL (150-400); RBC DISTRIBUTION WIDTH 17.4 % (12.0-16.0); RED CELL COUNT 3.44 10/6/uL (4.0-5.6); WHITE BLOOD CELLS 10.3 10/3/uL (4.5-10.5)
[2016-08-09 05:55] LABS: MANUAL DIFF NO %
[2016-08-09 06:03] LABS: BUN (BLOOD UREA NITROGEN) 18 MG/DL (6-23); CALCIUM, SERUM 8.1 MG/DL (8.5-10.4); CHLORIDE, SERUM 103 MMOL/L (96-112); CO2 (CARBON DIOXIDE) 29 MMOL/L (24-34); CREATININE 0.83 MG/DL (0.55-1.02); GFR AFRICAN AMERICAN 85 ML/MIN (>=60); GFR NON AFRICAN AMERICAN 73 ML/MIN (>=60); GLUCOSE, SERUM 113 MG/DL (60-99); PHOSPHORUS, SERUM 3.3 MG/DL (2.5-4.5); POTASSIUM, SERUM 3.9 MMOL/L (3.5-5.3); SODIUM, SERUM 138 MMOL/L (135-148)
== END 2016-08-09 15:29 | disposition home or self-care (01) | DRG 208 ==
LOC: ER 19:16 → CVICU 21:10 → 7NO 08-05 18:08
PROVIDERS: Emergency Medicine; Hospitalist; Internal Medicine Critical Care Medicine; Internal Medicine Pulmonary Disease
PROC: 0BH17EZ Insertion of Endotracheal Airway into Trachea, Via Natural or Artificial Opening (ICD-10-PCS; principal; 2016-08-01)
PROC: 5A1945Z Respiratory Ventilation, 24-96 Consecutive Hours (ICD-10-PCS; 2016-08-01)
DX: J96.21 Acute and chronic respiratory failure with hypoxia (principal); I50.33 Acute on chronic diastolic (congestive) heart failure; J44.1 Chronic obstructive pulmonary disease with (acute) exacerbation; I27.81 Cor pulmonale (chronic); E11.22 Type 2 diabetes mellitus with diabetic chronic kidney disease; Z99.81 Dependence on supplemental oxygen; I11.0 Hypertensive heart disease with heart failure; D64.9 Anemia, unspecified; F41.9 Anxiety disorder, unspecified; E78.00 Pure hypercholesterolemia, unspecified; N18.3 Chronic kidney disease, stage 3 (moderate); I48.2 Chronic atrial fibrillation; Z79.01 Long term (current) use of anticoagulants; Z87.01 Personal history of pneumonia (recurrent); Z87.891 Personal history of nicotine dependence; Z79.02 Long term (current) use of antithrombotics/antiplatelets; Z79.82 Long term (current) use of aspirin
CPT/HCPCS: 31500; 31720; 36600; 71010; 74000; 80048; 80053; 80076; 80162; 82805; 82962; 83735; 83880; 84100; 84145; 84484; 85025; 85610; 85730; 87070; 87205; 87641; 93005; 94002; 94003; 94640; 94660; 94770; 96374; 96375; 97162-GP; 97530-GP; 99285; A9270-GY; C1894; C9113; G8978-CK-GP; G8979-CJ-GP; J0330; J1120; J1160; J1956; J2405; J2920; J2930; J3411; J3475